=== PATIENT | female | born 1955 | race Caucasian/White ===

== ENCOUNTER 2018-04-30 08:32 | Observation (INO) ==
[2018-04-30] MEDS ORDERED: Azithromycin 500 MG in D5% in Water 250 ML IVPB ONE (08:39)
[2018-04-30] MEDS ORDERED: 0.9 % Sodium Chloride 1,000 ML IVC SCH ×2 (08:45→13:12)
[2018-04-30 08:59] LABS: Bilirubin,Urine Negative (Negative); Blood,Urine Small (Negative); Clarity,Urine Cloudy (Clear); Color,Urine Yellow (Yellow); Glucose,Urine (UA) Normal (Normal); Ketones,Urine Negative (Negative); Leukocyte Esterase,Urine Large (Negative); Nitrite,Urine Negative (Negative); PH,Urine >=9.0 pH Units (5.0-8.0); Protein,Urine >=300 mg/dL (Neg-Trace); Urobilinogen,Urine Normal (Normal)
[2018-04-30] MEDS ORDERED: methylPREDNISolone 125 MG/2 ML VIAL IVP ONE (09:02)
[2018-04-30] MEDS ORDERED: Ipratropium/Albuterol Neb 3 ML IH ONE (09:02)
--- NOTE | 2018-04-30 09:05 | Emergency Department Note ---
Disposition Clinical Impression: CHF exacerbation, Community acquired pneumonia, Hypoxia, Urinary tract infection Disposition: Admitted As Inpatient Condition: Fair Referrals: Rajeev Judge MD [Primary Care Provider] - Forms: ED Satisfaction Letter Time of Disposition: 11:22 ([facility]) SOB HPI - General Chief Complaint: UC Shortness of Breath Stated Complaint: shortness of breath, pelvic pain Time Seen by Provider: 04/30/18 08:40 Source: patient, EMS, other (Nursing care facility called report) Mode of arrival: EMS Limitations: physical limitation Nursing Notes Reviewed: Yes Vital Signs Reviewed: Yes - History of Present Illness 63-year-old female presents to the emergency room with increased breath cough and congestion and hypoxia sent in by the nursing care facility. Patient denies though any blurred vision double vision loss vision states that she is unable to catch her breath she denies apnea or cyanosis but feels that she smothering she has had fevers and chills she has had no diarrhea she has had some swelling to the lower extremities she denies any rash or lesions patient is a moderate historian currently on 100% nonrebreather normally on BiPAP. EMS notes that the BiPAP did not appear to be working at the nursing care facility. With further review systems though the patient denies any additional complaints with complete entire review systems Pt Subjective Complaint: shortness of breath, cough Onset (ago): day(s) Context: recent illness Severity: moderate Consistency/Duration: constant, gradually worsening Improves with: oxygen Worsens with: exertion, movement, coughing Known history of: congestive heart failure, diabetes, recurrent pneumonia Associated symptoms: Reports: fever, cough, wheezing, sputum production. Denies: chest pain, pain with inspiration, orthopnea, lower extremity pain, polyuria, polydipsia, parasthesias, palpitations, hemoptysis, diaphoresis, nausea/vomiting, syncope, abdominal pain, rash, sense of impending doom Treatment prior to arrival: oxygen (100% nonrebreather) Cough present: Yes Cough Description: Involuntary, Productive, Bronchospastic, Rattling Cough Frequency: Intermittent Sputum production: Yes Sputum Amount: Moderate Sputum Color: Cream - Related Data Home Medications Medication Instructions Recorded Confirmed Diltiazem HCl [Diltiazem 24Hr Cd] 180 mg PO DAILY 10/18/14 04/30/18 Albuterol Sulfate [Ventolin Hfa] 2 puff IH Q4H PRN 10/14/15 04/30/18 Lactulose 20 gm PO DAILY PRN 10/14/15 04/30/18 Loratadine [Claritin] 10 mg PO DAILY 10/14/15 04/30/18 Ranitidine HCl [Heartburn Relief] 150 mg PO DAILY 10/14/15 04/30/18 Rivaroxaban [Xarelto] 20 mg PO DAILY 02/08/16 04/30/18 Acetaminophen [Extra Strength 500 mg PO Q6H 04/30/18 04/30/18 Non-Aspirin] Baclofen [Lioresal] 10 mg PO BID 04/30/18 04/30/18 Ciprofloxacin HCl [Cipro] 250 mg PO DAILY 04/30/18 04/30/18 Dulaglutide [Trulicity] 1.5 mg SQ QWEEK 04/30/18 04/30/18 Fluorometholone [Fml Forte] 1 drop OP DAILY 04/30/18 04/30/18 Furosemide [Lasix] 60 mg PO BIDDIURETIC 04/30/18 04/30/18 Glimepiride [Amaryl] 4 mg PO BID 04/30/18 04/30/18 Insulin ASPART [Novolog Flexpen] 0 unit SQ ACHS 04/30/18 04/30/18 Insulin ASPART [Novolog Flexpen] 34 unit SQ TIDWM 04/30/18 04/30/18 Insulin Degludec [Tresiba 37 unit SQ HS 04/30/18 04/30/18 Flextouch U-100] Lactobacillus Acidophilus 2 each PO DAILY 04/30/18 04/30/18 [Acidophilus] Levalbuterol Tartrate [Xopenex Hfa] 2 puff IH Q6H 04/30/18 04/30/18 Montelukast [Singulair] 10 mg PO HS 04/30/18 04/30/18 Oxybutynin Chloride [Ditropan Xl] 5 mg PO QID 04/30/18 04/30/18 Polyethylene Glycol 3350 [MiraLAX] 17 gm PO DAILY PRN 04/30/18 04/30/18 Polyvinyl Alcohol/Povidone 1 drop OP DAILY PRN 04/30/18 04/30/18 [Artificial Tears Drops] Tolnaftate [Antifungal Cream] 14.18 gm TP Q8H 04/30/18 04/30/18 Tramadol HCl [Ultram] 50 mg PO Q4H PRN 04/30/18 04/30/18 Previous Rx's Medication Instructions Recorded Allopurinol [Zyloprim 300 MG] 300 mg PO DAILY tablet 07/04/15 Docusate [Colace] 200 mg PO BID capsule 07/04/15 FentaNYL PATCH [Duragesic] 25 mcg TD Q72H #3 patch.td72 10/18/15 Gabapentin [Neurontin] 200 mg PO TID #15 capsule 04/16/17 Lisinopril [Zestril] 2.5 mg PO DAILY tablet 04/16/17 Allergies Allergy/AdvReac Type Severity Reaction Status Date / Time INDOCET AdvReac Hives Uncoded 08/17/16 00:41 All systems ED: reviewed and negative except as stated. Review of Systems: As Per HPI Constitutional: Reports: fever, chills, weakness Eyes: Denies: eye pain, eye discharge ENT ED: Reports: congestion Cardiovascular: Reports: palpitations, dyspnea on exertion. Denies: chest pain Respiratory: Reports: cough, dyspnea, wheezes Gastrointestinal: Denies: abdominal pain, nausea, vomiting Genitourinary: Reports: urgency (Despite having a Anders) Musculoskeletal: Denies: back pain, neck pain, joint swelling Integumentary: Denies: rash, abrasion Neurological: Denies: headache, weakness Psychiatric: Denies: anxiety, depression Endocrine: Denies: fatigue Hematological/Lymphatic: Denies: easy bleeding Allergic/Immunologic: Denies: facial swelling Past Medical History - Past Medical History Attestation: Yes The following information was validated with the patient. Source: patient, old records reviewed, nursing notes reviewed Medical history: Reports: atrial fibrillation, diabetes, GERD, hypertension, pulmonary embolus, renal disease, other Surgical history: Reports: hysterectomy, knee replacement Psychiatric history: Reports: anxiety, depression - Social History Smoking Status: Never smoker Smokeless Tobacco Status: No Alcohol use: Reports: none Drug use: Reports: none Physical Exam - General Limitations: physical limitation General appearance: alert, in no apparent distress, anxious, obese - Head Head exam: atraumatic, normocephalic, normal inspection - Eye Eye exam: Present: normal appearance, PERRL, EOMI - ENT ENT exam: normal exam, normal oropharynx, mucous membranes moist, TM's normal bilaterally, normal external ear exam - Neck Neck exam: Present: normal inspection, full ROM, trachea midline - Chest Chest inspection: Present: normal inspection, symmetric chest wall rise - Respiratory Respiratory exam: Present: accessory muscle use, prolonged expiratory phase, o ther (Rhonchi wheezing rattling wet moist cough) - Cardiovascular Cardiovascular exam: Present: regular rate, normal rhythm, normal heart sounds - Abdominal Exam Abdominal exam: Present: soft, Non-Tender, normal bowel sounds. Absent: mass, pulsatile mass - Expanded Upper Extremity Exam Shoulder exam: Present: normal inspection, full ROM Arm exam: Present: normal inspection, full ROM Elbow exam: Present: normal inspection, full ROM Forearm/Wrist exam: Present: normal inspection, full ROM Hand exam: Present: normal inspection, full ROM Vascular exam: Normal: capillary refill, radial pulse - Expanded Lower Extremity Exam Hip/Pelvis exam: Present: normal inspection, full ROM Upper leg exam: Present: normal inspection, full ROM Knee exam: Present: normal inspection, full ROM Lower leg exam: Present: normal inspection, full ROM, swelling, erythema Ankle exam: Present: normal inspection, full ROM, swelling, erythema Foot/toe exam: Present: normal inspection, full ROM, swelling, erythema Neurovascular/Tendon exam: Present: normal capillary refill, normal fine/light touch. Absent: motor deficit, sensory deficit, tendon deficit Gait: not tested/not observed - Back Exam Back exam: Present: normal inspection, full ROM. Absent: muscle spasm - Neurological Exam Neurological exam: Present: alert, oriented X3, CN II-XII intact - Psychiatric Psychiatric exam: Present: anxious (Due to the fact she feels like she was sm othering but once calmed down appeared to be normal affect normal mood) - Skin Skin exam: Present: warm, dry, intact, normal color Course Course Narrative: Patient was immediately seen and evaluated septic workup was done on the patient to make sure that she did not have an underlying sepsis chest x-ray reviewed shows pneumonia bilateral with some mild evidence of what could be consistent with congestive heart failure also was given diuretics and antibiotics patient was admitted observation to [facility] on BiPAP improved with sats holding at 98% heart rate in the 60s respiratory rate 16 Vital Signs Temperature 99.3 F 04/30/18 08:37 Pulse Rate 107 04/30/18 08:37 Respiratory Rate 22 02/20/19 08:37 Blood Pressure 171/86 04/30/18 08:37 O2 Sat by Pulse Oximetry 100 04/30/18 08:37 Temperature 100.8 F H 04/30/18 09:21 Pulse Rate 102 04/30/18 10:25 Respiratory Rate 12 04/30/18 10:25 Blood Pressure 127/65 04/30/18 10:25 O2 Sat by Pulse Oximetry 98 04/30/18 10:25 Oxygen Delivery Oxygen Delivery Bipap Shortness of Breath/Dyspnea - Differential Diagnosis Likely: acute exacerbation of chronic obstructive airways disease, congestive heart failure, pneumonia - Medical Records Medical records reviewed: Yes I reviewed the patient's medical records. - Lab Data Lab results reviewed: Yes I reviewed the patient's lab results. Result diagrams: 04/30/18 09:49 04/30/18 09:49 Lab Results 04/30/18 04/30/18 04/30/18 Range/Units 08:53 09:00 09:49 WBC 11.7 H (4.3-11.1) K/mcL RBC 4.09 (3.82-4.97) M/mcL Hgb 12.2 (11.5-15.4) g/dL Hct 41.1 (35.3-44.9) % MCV 100.5 H (83.0-100.0) fL MCH 29.8 (28.0-33.3) pg MCHC 29.7 L (31.6-35.5) g/dL RDW 16.2 H (11.5-14.5) % Plt Count 205 (140-400) K/mcL MPV 11.9 (9.4-12.4) fL Immature Gran % 1.0 (0-4) % Seg Neutrophils % 65.8 % Lymphocytes % 23.6 % Monocytes % 8.1 % Eosinophils % 0.7 % Basophils % 0.8 % Neutrophils # 7.7 (1.6-8.9) K/mcL Lymphocytes # 2.8 (0.6-4.6) K/mcL Monocytes # 1.0 (0.0-1.3) K/mcL Eosinophils # 0.1 (0.0-0.6) K/mcL Basophils # 0.1 (0.0-0.2) K/mcL Nucleated RBCs/100 WBC 0.4 H (0) /100 WBC PT (9.4-12.1) Seconds INR APTT (26.0-36.0) Seconds Sodium (136-145) mEq/L Potassium (3.5-5.1) mEq/L Chloride (98-107) mEq/L Carbon Dioxide (23-29) mEq/L BUN (8-23) mg/dL Creatinine (0.60-1.20) mg/dL Est GFR ( Amer) (> 60) Est GFR (Non-Af Amer) (> 60) BUN/Creatinine Ratio (6-26) Glucose (70-105) mg/dL Calculated Osmolality (280-300) Lactic Acid 0.6 (0.5-2.2) mmol/L Calcium (8.6-10.3) mg/dL Total Bilirubin (0.3-1.0) mg/dL AST (13-39) Units/L ALT (7-52) Units/L Alkaline Phosphatase (34-104) Units/L Troponin I (< 0.04) ng/mL B-Natriuretic Peptide (Less than 100) pg/mL Serum Total Protein (6.4-8.9) g/dL Albumin (3.5-5.7) g/dL Globulin (2.4-3.5) g/dL Albumin/Globulin Ratio (1.1-2.2) Urine Color Yellow (Yellow) Urine Clarity Cloudy A (Clear) Urine pH >=9.0 H (5.0-8.0) pH Units Ur Specific [place] 1.010 (1.010-1.025) Urine Protein >=300 H (Neg-Trace) mg/dL Urine Glucose (UA) Normal (Normal) mg/dL Urine Ketones Negative (Negative) mg/dL Urine Blood Small H (Negative) Urine Nitrite Negative (Negative) Urine Bilirubin Negative (Negative) Urine Urobilinogen Normal (Normal) mg/dL Ur Leukocyte Esterase Large H (Negative) Urine Microscopic RBC 3-5 H (0-3) per hpf Urine Microscopic WBC 15-30 H (0-3) per hpf Ur Squamous Epith Cells Few (None-Few) per lpf Triple Phos Crystals Present Urine Bacteria Many H (None-Few) per hpf Urine Mucus Many H (Few) Ur Culture Indicated? YES A (NO) 02/04/30/18 04/30/18 Range/Units 09:49 09:49 09:49 WBC (4.3-11.1) K/mcL RBC (3.82-4.97) M/mcL Hgb (11.5-15.4) g/dL Hct (35.3-44.9) % MCV (83.0-100.0) fL MCH (28.0-33.3) pg MCHC (31.6-35.5) g/dL RDW (11.5-14.5) % Plt Count (140-400) K/mcL MPV (9.4-12.4) fL Immature Gran % (0-4) % Seg Neutrophils % % Lymphocytes % % Monocytes % % Eosinophils % % Basophils % % Neutrophils # (1.6-8.9) K/mcL Lymphocytes # (0.6-4.6) K/mcL Monocytes # (0.0-1.3) K/mcL Eosinophils # (0.0-0.6) K/mcL Basophils # (0.0-0.2) K/mcL Nucleated RBCs/100 WBC (0) /100 WBC PT 16.1 H (9.4-12.1) Seconds INR 1.4 APTT 29.9 (26.0-36.0) Seconds Sodium 135 L (136-145) mEq/L Potassium 5.1 (3.5-5.1) mEq/L Chloride 94 L (98-107) mEq/L Carbon Dioxide 33 H (23-29) mEq/L BUN 46 H (8-23) mg/dL Creatinine 0.99 (0.60-1.20) mg/dL Est GFR ( Amer) > 60 (> 60) Est GFR (Non-Af Amer) 56 L (> 60) BUN/Creatinine Ratio 46 H (6-26) Glucose 168 H (70-105) mg/dL Calculated Osmolality 296 (280-300) Lactic Acid (0.5-2.2) mmol/L Calcium 8.9 (8.6-10.3) mg/dL Total Bilirubin 0.4 (0.3-1.0) mg/dL AST 22 (13-39) Units/L ALT 24 (7-52) Units/L Alkaline Phosphatase 86 (34-104) Units/L Troponin I 0.03 (< 0.04) ng/mL B-Natriuretic Peptide 101 H (Less than 100) pg/mL Serum Total Protein 6.6 (6.4-8.9) g/dL Albumin 3.2 L (3.5-5.7) g/dL Globulin 3.4 (2.4-3.5) g/dL Albumin/Globulin Ratio 0.9 L (1.1-2.2) Urine Color (Yellow) Urine Clarity (Clear) Urine pH (5.0-8.0) pH Units Ur Specific [place] (1.010-1.025) Urine Protein (Neg-Trace) mg/dL Urine Glucose (UA) (Normal) mg/dL Urine Ketones (Negative) mg/dL Urine Blood (Negative) Urine Nitrite (Negative) Urine Bilirubin (Negative) Urine Urobilinogen (Normal) mg/dL Ur Leukocyte Esterase (Negative) Urine Microscopic RBC (0-3) per hpf Urine Microscopic WBC (0-3) per hpf Ur Squamous Epith Cells (None-Few) per lpf Triple Phos Crystals Urine Bacteria (None-Few) per hpf Urine Mucus (Few) Ur Culture Indicated? (NO) - Radiology Data Radiology results reviewed: Yes I reviewed the patient's radiology results. ITS Impressions Chest X-Ray 04/30/18 08:39 IMPRESSION: Mild pulmonary vascular congestion without overt pulmonary edema. Mild patchy bibasilar opacities which may relate to atelectasis or infiltrates. There may be a small right pleural effusion. Stable cardiomegaly. D/ / 04/30/2018 09:08:13 Jah Cannon MD / [email or web address] Interpreting Provider: Jah Cannon MD - EKG Data EKG attestation: Yes I reviewed and interpreted this EKG. Critical Care Time Critical Care Time: Yes Total Critical Care Time: 15 Attestation: High probability of clinically significant life-threatening deterioration in this patient's condition excluding separately reportable procedures as result of the patient being hypoxic upon arrival responding well to BiPAP when placed on it with the equipment that is in shown to be appropriate with sats improving to 96-98% with the patient tolerating it well
[2018-04-30 09:40] LABS: Bacteria,Urine Many per hpf (None-Few); Squamous Epithelial Cell,Urine Few per lpf (None-Few); Triple Phosphate Crystal,Urine Present; WBC,Urine 15-30 per hpf (0-3)
[2018-04-30 09:41] LABS: Mucus,Urine Many (Few)
[2018-04-30 10:04] LABS: Basophils # 0.1 K/mcL (0.0-0.2); Basophils % 0.8 %; Eosinophils # 0.1 K/mcL (0.0-0.6); Eosinophils % 0.7 %; Hematocrit 41.1 % (35.3-44.9); Hemoglobin 12.2 g/dL (11.5-15.4); Lymphocytes # 2.8 K/mcL (0.6-4.6); Lymphocytes % 23.6 %; Mean Corpuscular HGB Conc 29.7 g/dL (31.6-35.5); Mean Corpuscular Hemoglobin 29.8 pg (28.0-33.3); Mean Corpuscular Volume 100.5 fL (83.0-100.0); Mean Platelet Volume 11.9 fL (9.4-12.4); Monocytes % 8.1 %; Neutrophils # 7.7 K/mcL (1.6-8.9); Nucleated Red Blood Cells 0.4 /100 WBC (0); Platelet Count 205 K/mcL (140-400); Red Blood Count 4.09 M/mcL (3.82-4.97); Red Cell Distribution Width 16.2 % (11.5-14.5); Segmented Neutrophils % 65.8 %
[2018-04-30 10:15] LABS: INR 1.4; Prothrombin Time 16.1 Seconds (9.4-12.1)
[2018-04-30 10:17] LABS: Activated Partial Thrombo Time 29.9 Seconds (26.0-36.0)
[2018-04-30 10:23] LABS: Troponin I 0.03 ng/mL (< 0.04)
[2018-04-30 10:29] LABS: Alanine Aminotransferase 24 Units/L (7-52); Albumin 3.2 g/dL (3.5-5.7); Albumin/Globulin Ratio 0.9 (1.1-2.2); Alkaline Phosphatase 86 Units/L (34-104); Aspartate Amino Transferase 22 Units/L (13-39); BUN/Creatinine Ratio 46 (6-26); Bilirubin,Total 0.4 mg/dL (0.3-1.0); Blood Urea Nitrogen 46 mg/dL (8-23); Calcium 8.9 mg/dL (8.6-10.3); Carbon Dioxide 33 mEq/L (23-29); Chloride 94 mEq/L (98-107); Globulin 3.4 g/dL (2.4-3.5); Glucose 168 mg/dL (70-105); Osmolality,Calculated 296 (280-300); Potassium 5.1 mEq/L (3.5-5.1); Sodium 135 mEq/L (136-145); Total Protein 6.6 g/dL (6.4-8.9); eGFR For Non-African Americans 56 (> 60)
[2018-04-30] MEDS ORDERED: Bumetanide 1 MG/4 ML VIAL IVP ONE (10:38)
[2018-04-30] MEDS ORDERED: Dextrose 4 GM Chewable Tablets PO PRN ×2 (13:12)
[2018-04-30] MEDS ORDERED: D5% in Water 1,000 ML IVC PRN (13:12)
[2018-04-30] MEDS ORDERED: Ondansetron 4 MG/2 ML VIAL IVP PRN (13:12)
[2018-04-30] MEDS ORDERED: *HR* Dextrose 50 % in Water (Syg) 50 ML SYRINGE IVP PRN (13:12)
[2018-04-30] MEDS ORDERED: *HR* FentaNYL PATCH 25 MCG PATCH TD SCH (13:12)
[2018-04-30] MEDS ORDERED: Acetaminophen 325 MG TABLET PO PRN (13:12)
[2018-04-30] MEDS ORDERED: Artificial Tears SOLN 15 ML BOTTLE OP PRN (13:12)
[2018-04-30] MEDS ORDERED: Dextrose Gel 15 GM/37.5 ML TUBE PO PRN ×2 (13:12)
[2018-04-30] MEDS ORDERED: Naloxone 0.4 MG/ML INJ IVP PRN (13:12)
[2018-04-30] MEDS: Gabapentin 100 MG CAPSULE PO SCH ×2 (15:02→20:02)
[2018-04-30] MEDS: Insulin LISPRO 300 UNITS/3 ML VIAL SQ SCH ×2 (15:04→17:55)
[2018-04-30] MEDS: TOLNAFTATE TP SCH ×2 (15:04→20:03)
[2018-04-30] MEDS: Bumetanide 1 MG/4 ML VIAL IVP SCH (15:16)
[2018-04-30] MEDS ORDERED: Levalbuterol 1 PUFF INHALER IH SCH (16:00)
[2018-04-30] MEDS ORDERED: Insulin LISPRO 300 UNITS/3 ML VIAL SQ SCH ×2 (17:00→21:00)
--- NOTE | 2018-04-30 17:06 | Internal Med History&Physical ---
Date of Encounter: 04/30/18 Time of Encounter: 16:35 Assessment and Plan (1) Pneumonia Current visit: Yes Status: Acute She was started on Rocephin and Zithromax with Solu-Medrol in emergency room. Qualifiers: Pneumonia type: due to unspecified organism Laterality: bilateral Lung location: lower lobe of lung Qualified Code(s): J18.1 - Lobar pneumonia, unspecified organism (2) Macrocytosis Current visit: Yes Status: Acute Intermittent since September 2015. Check B12, folate, and TSH in a.m. LFTs were unremarkable. (3) Azotemia Current visit: Yes Status: Acute Recheck labs in a.m. (4) Obesity hypoventilation syndrome Current visit: No Status: Acute Continue BiPAP at bedtime and when necessary during daytime. (5) Low vitamin D level Current visit: Yes Status: Acute Vitamin D level was 6 on 10/16/2015. Recheck in a.m. (6) Gout Current visit: Yes Status: Acute Check uric acid level in a.m. Qualifiers: Gout site: unspecified site Gout etiology: unspecified cause Chronicity: chronic Presence of tophus: without tophus Qualified Code(s): [id number].[id number] - Chronic gout, unspecified, without tophus (tophi) Internal Medicine - H&P: HPI Chief complaint: Dyspnea and hypoxemia Admitted From: Emergency Dept Plans for Post Hospital Care: Home History of present illness: Ms. Luis is a 63 year old female who came to emergency room from a local SNF after staff noted her to have increased dyspnea with congestion and hypoxemia. EMS evaluated her BiPAP machine and did not feel that it was functioning properly. She was brought to emergency room and evaluated and was felt to have possible pneumonia. [facility]. Her respiratory history is significant for being a lifelong nonsmoker. She was placed on BiPAP for acute on chronic respiratory failure with hypoxemia and hypercapnia April 2017 at time of discharge from [facility]. She states she uses BiPAP at nighttime and as needed during the daytime when taking a nap. Past Med Surg Social Fam HX - Past Medical History Medical history: atrial fibrillation, diabetes, GERD, hypertension, pulmonary embolus, renal disease, other Additional medical history: chronic respr failure. hypoxemia. cellulitis left lower limb. histroy of pe Psychiatric history: anxiety, depression - Past Surgical History Surgical History: hysterectomy, knee replacement Additional surgical history: thyroid cyst removed. left knee [id number] - Social History Smoking Status: Never smoker Smokeless Tobacco Status: No Alcohol use: none Drug use: none - Family History Father Hx Family Cardiac Disorders: Yes (ND) Hx Family Respiratory Disorders: Yes (Emphysema) Hx Family Cancer: No Hx Family GI Disorders: No Hx Family Endocrine Disorder: No Hx Family Neuromuscular Disorders: No Hx Family Neurologic Disorders: No Hx Family HEENT Disorders: No Hx Family Autoimmune Disorders: No Mother Family Member Ethnicity: Non- Living Status: Hx Family Cardiac Disorders: No Hx Family Respiratory Disorders: Yes (Lung cancer) Hx Family Cancer: Yes (Small cell carcinoma) Hx Family GI Disorders: No Hx Family Endocrine Disorder: No Hx Family Neuromuscular Disorders: No Hx Family Neurologic Disorders: No Hx Family HEENT Disorders: No Hx Family Autoimmune Disorders: No Internal Medicine - H&P: Meds Diltiazem HCl [Diltiazem 24Hr Cd] 180 mg PO DAILY 10/18/14 [History] Allopurinol [Zyloprim 300 MG] 300 mg PO DAILY tablet 07/04/15 [Rx] Docusate [Colace] 200 mg PO BID capsule 07/04/15 [Rx] Albuterol Sulfate [Ventolin Hfa] 2 puff IH Q4H PRN 10/14/15 [History] Lactulose 20 gm PO DAILY PRN 10/14/15 [History] Loratadine [Claritin] 10 mg PO DAILY 10/14/15 [History] Ranitidine HCl [Heartburn Relief] 150 mg PO DAILY 10/14/15 [History] FentaNYL PATCH [Duragesic] 25 mcg TD Q72H #3 patch.td72 10/18/15 [Rx] Rivaroxaban [Xarelto] 20 mg PO DAILY 02/08/16 [History] Gabapentin [Neurontin] 200 mg PO TID #15 capsule 04/16/17 [Rx] Lisinopril [Zestril] 2.5 mg PO DAILY tablet 04/16/17 [Rx] Acetaminophen [Extra Strength Non-Aspirin] 500 mg PO Q6H 04/30/18 [History] Baclofen [Lioresal] 10 mg PO BID 04/30/18 [History] Ciprofloxacin HCl [Cipro] 250 mg PO DAILY 04/30/18 [History] Dulaglutide [Trulicity] 1.5 mg SQ QWEEK 04/30/18 [History] Fluorometholone [Fml Forte] 1 drop OP DAILY 04/30/18 [History] Furosemide [Lasix] 60 mg PO BIDDIURETIC 04/30/18 [History] Glimepiride [Amaryl] 4 mg PO BID 04/30/18 [History] Insulin ASPART [Novolog Flexpen] 0 unit SQ ACHS 04/30/18 [History] Insulin ASPART [Novolog Flexpen] 34 unit SQ TIDWM 04/30/18 [History] Insulin Degludec [Tresiba Flextouch U-100] 37 unit SQ HS 04/30/18 [History] Lactobacillus Acidophilus [Acidophilus] 2 each PO DAILY 04/30/18 [History] Levalbuterol Tartrate [Xopenex Hfa] 2 puff IH Q6H 04/30/18 [History] Montelukast [Singulair] 10 mg PO HS 04/30/18 [History] Oxybutynin Chloride [Ditropan Xl] 5 mg PO QID 04/30/18 [History] Polyethylene Glycol 3350 [MiraLAX] 17 gm PO DAILY PRN 04/30/18 [History] Polyvinyl Alcohol/Povidone [Artificial Tears Drops] 1 drop OP DAILY PRN 04/30/18 [History] Tolnaftate [Antifungal Cream] 14.18 gm TP Q8H 04/30/18 [History] Tramadol HCl [Ultram] 50 mg PO Q4H PRN 04/30/18 [History] Allergy/AdvReac Type Severity Reaction Status Date / Time INDOCET AdvReac Hives Uncoded 08/17/16 00:41 All Systems PM: A 10-system review of systems was performed and is negative for pertinent findings except as documented above in the HPI. Review of systems: Gen.: Her weight is slightly decreased from 209.6 kg on 04/10/2017 to present weight of 195.952 kilograms. Cardiovascular: She has history of hypertension. She reports pulmonary embolism 2012 and has been maintained on OAC since then. She initially used Coumadin but is now on Xarelto. She denies ND.. Old chart reports a history of atrial fibrillation. Respiratory: As per history of present illness GI: She denies disorders of her liver gallbladder or exocrine pancreas : She has history of "bladder spasms" and is on oxybutynin. She denies other kidney or bladder disorders. Neurologic: She denies large distribution strokes or seizures. Endocrine: She was diagnosed with DM 2 approximately 20 years ago. She reports hypothyroidism but is not on replacement levothyroxine. She denies significant hyperlipidemia Hematology/oncology: She denies blood disorders cancers or anemia Psychiatric: She denies anxiety depression or other mental health issues [place] skeletal: She has DJD and gout but denies other bone joint or muscle disorders. - Constitutional Vitals: Temp Pulse Resp BP Pulse Ox 98.7 F 101 18 165/83 100 04/30/18 15:47 04/30/18 15:47 04/30/18 15:47 04/30/18 15:47 04/30/18 15:47 Exam: Gen.: She is a well-developed morbidly obese female lying in bed who denies unusual pain or dyspnea at present time HEENT: Head is atraumatic and normocephalic. She has significant generalized hair loss. Eyes: EOMI. There is no scleral icterus. Mouth: Mucosa is moist. Neck: She has a large jowl. There are no palpable masses. Heart: Regular with occasional ectopic beat. Lungs: No wheezes or crackles are heard. Abdomen: She has a massive pannus that extends below her knees while lying in bed. There were no masses, tenderness or guarding noted Extremities: She has chronic venous stasis pigmentation changes with skin tags and nodularity of the dermis and epidermis more on the left than the right. There is venous stasis erythema changes more on the left than the right. Dorsalis pedis and posterior tibial pulses are nonpalpable. There is trace to 1+ edema of the dorsum the feet and lower legs bilaterally. Neurologic: Mental status: She is talkative and a good historian. Cranial nerves: Smile is symmetric. Forehead wrinkles bilaterally. Tongue protrudes midline. EOMI. Motor: There is no pronator drift. Cerebellar: Finger to nose is intact bilaterally. Skin: Warm and dry Internal Med - H&P Results - Labs CBC & Chem 7: 04/30/18 09:49 04/30/18 09:49 Labs: Short CBC 04/30/18 Range/Units 09:49 WBC 11.7 H (4.3-11.1) K/mcL Hgb 12.2 (11.5-15.4) g/dL Hct 41.1 (35.3-44.9) % Plt Count 205 (140-400) K/mcL Neutrophils # 7.7 (1.6-8.9) K/mcL BMP 04/30/18 09:49 Sodium 135 L Potassium 5.1 Chloride 94 L Carbon Dioxide 33 H BUN 46 H Creatinine 0.99 Glucose 168 H Calcium 8.9 Cardiac Enzymes 04/30/18 04/30/18 Range/Units 09:49 15:52 Troponin I 0.03 0.04 H* (< 0.04) ng/mL Liver Function 04/30/18 Range/Units 09:49 Total Bilirubin 0.4 (0.3-1.0) mg/dL AST 22 (13-39) Units/L ALT 24 (7-52) Units/L Alkaline Phosphatase 86 (34-104) Units/L Albumin 3.2 L (3.5-5.7) g/dL Urine 04/30/18 Range/Units 08:53 Urine Color Yellow (Yellow) Urine Clarity Cloudy A (Clear) Urine pH >=9.0 H (5.0-8.0) pH Units Ur Specific [place] 1.010 (1.010-1.025) Urine Protein >=300 H (Neg-Trace) mg/dL Urine Glucose (UA) Normal (Normal) mg/dL - Impressions ITS Impressions Chest X-Ray 04/30/18 08:39 IMPRESSION: Mild pulmonary vascular congestion without overt pulmonary edema. Mild patchy bibasilar opacities which may relate to atelectasis or infiltrates. There may be a small right pleural effusion. Stable cardiomegaly. D/ / 04/30/2018 09:08:13 [facility] MD / [facility] Interpreting Provider: Jah Cannon MD
[2018-04-30] MEDS: Furosemide 40 MG TABLET PO SCH (17:59)
[2018-04-30] MEDS: traMADol 50 MG TABLET PO PRN (18:00)
[2018-04-30] MEDS: *HR* Glimepiride 2 MG TABLET PO SCH (20:02)
[2018-04-30] MEDS: Baclofen 10 MG TABLET PO SCH (20:02)
[2018-04-30] MEDS ORDERED: INSULIN DEGLUDEC SQ SCH (21:00)
[2018-05-01 06:05] LABS: Basophils % 0.5 %; Hematocrit 35.4 % (35.3-44.9); Hemoglobin 10.8 g/dL (11.5-15.4); Immature Granulocytes % 1.7 % (0-4); Lymphocytes # 1.4 K/mcL (0.6-4.6); Lymphocytes % 20.7 %; Mean Corpuscular HGB Conc 30.5 g/dL (31.6-35.5); Mean Corpuscular Volume 98.3 fL (83.0-100.0); Mean Platelet Volume 12.4 fL (9.4-12.4); Monocytes # 0.4 K/mcL (0.0-1.3); Monocytes % 6.7 %; Neutrophils # 4.6 K/mcL (1.6-8.9); Nucleated Red Blood Cells 0.5 /100 WBC (0); Platelet Count 232 K/mcL (140-400); Red Cell Distribution Width 16.1 % (11.5-14.5); Segmented Neutrophils % 70.4 %
[2018-05-01] MEDS: TOLNAFTATE TP SCH (06:19)
[2018-05-01 06:26] LABS: Uric Acid 5.9 mg/dL (2.3-7.6)
[2018-05-01 06:38] LABS: Thyroid Stimulating Hormone 0.748 mcIU/mL (0.340-5.600)
[2018-05-01 07:03] LABS: BUN/Creatinine Ratio 49 (6-26); Blood Urea Nitrogen 42 mg/dL (8-23); Calcium 8.9 mg/dL (8.6-10.3); Carbon Dioxide 41 mEq/L (23-29); Chloride 94 mEq/L (98-107); Glucose 321 mg/dL (70-105); Osmolality,Calculated 311 (280-300); Potassium 4.1 mEq/L (3.5-5.1); Sodium 139 mEq/L (136-145); eGFR For Non-African Americans > 60 (> 60)
[2018-05-01 07:51] VITALS: BP 161/62
[2018-05-01] MEDS ORDERED: Diltiazem CD (24hr) 180 MG CAPSULE PO SCH (09:00)
[2018-05-01] MEDS ORDERED: Loratadine 10 MG TABLET PO SCH (09:00)
[2018-05-01] MEDS ORDERED: Famotidine 20 MG TABLET PO SCH (09:00)
[2018-05-01] MEDS ORDERED: *HR* Rivaroxaban 15 MG TABLET PO SCH (09:00)
[2018-05-01] MEDS ORDERED: FLUOROMETHOLONE OP SCH (09:00)
[2018-05-01] MEDS ORDERED: Lactobacillus 1 EACH CAP.SPRINK PO SCH (09:00)
[2018-05-01] MEDS ORDERED: Azithromycin 500 MG in D5% in Water 250 ML IVPB SCH (09:00)
[2018-05-01] MEDS ORDERED: cefTRIAXone 1,000 MG in Water for inj. (sterile) 20 ML 10 ML IVP SCH (09:00)
[2018-05-01] MEDS: Bumetanide 1 MG/4 ML VIAL IVP SCH (09:13)
[2018-05-01] MEDS: Furosemide 40 MG TABLET PO SCH (09:15)
[2018-05-01] MEDS: *HR* Glimepiride 2 MG TABLET PO SCH (09:16)
[2018-05-01] MEDS: Gabapentin 100 MG CAPSULE PO SCH (09:16)
[2018-05-01] MEDS: Baclofen 10 MG TABLET PO SCH (09:16)
[2018-05-01] MEDS: Insulin LISPRO 300 UNITS/3 ML VIAL SQ SCH ×2 (09:42→11:25)
[2018-05-01] MEDS: traMADol 50 MG TABLET PO PRN (11:24)
--- NOTE | 2018-05-01 11:38 | Discharge Summary ---
Orders not resulted at time of discharge: Pending orders 04/30/18 08:53 Culture,Urine [RM] Stat 04/30/18 09:00 Culture,Blood [BC] Stat Date of Encounter: 05/01/18 Time of Encounter: 11:30 - Discharge Diagnosis (1) Pneumonia Priority: Primary Status: Acute Qualifiers: Pneumonia type: due to unspecified organism Laterality: bilateral Lung location: lower lobe of lung Qualified Code(s): J18.1 - Lobar pneumonia, unspecified organism (2) Macrocytosis Priority: Secondary Status: Acute (3) Azotemia Priority: Secondary Status: Acute (4) Obesity hypoventilation syndrome Priority: Secondary Status: Chronic (5) Low vitamin D level Priority: Secondary Status: Chronic (6) Gout Priority: Secondary Status: Chronic Qualifiers: Gout site: unspecified site Gout etiology: unspecified cause Chronicity: chronic Presence of tophus: without tophus Qualified Code(s): M1A.9XX0 - Chronic gout, unspecified, without tophus (tophi) Hospital course: Ms. Luis is a 63 year old female who came to emergency room from a local [facility] after staff noted her to have increased dyspnea with congestion and hypoxemia. EMS evaluated her BiPAP machine and did not feel that it was functioning properly. She was brought to emergency room and evaluated and was felt to have possible pneumonia. She was admitted to [facility] for ongoing care needs. Initial orders were written by the emergency room physician. I saw her on April 30 and performed a history and physical. She was given Rocephin and Zithromax with Solu-Medrol in emergency room. WBC normalized to 6.5 by the following day. She spiked low-grade fevers but felt better overall when I saw her on May 01. I felt she was stable for discharge back to the SNF. She will continue with antibiotic and probiotic for 3 additional days at discharge. Vitamin B12 level returned low at 168. She was given a B12 injection prior to discharge and will continue oral B12 supplementation at the [facility]. Folate and TSH levels were normal at 4.0 and 0.748 respectively. Vitamin D level returned very low at 6. She will start oral vitamin D supplementation. Her PCP can monitor labs. There were no new problems on May 01 she was stable for discharge back to [facility] where she will follow with Dr. Judge. - Time Spent with Patient Total time spent providing and/or coordinating discharge services: - Discharge Medications Prescriptions: New Cefuroxime PO [Ceftin] 500 mg PO Q12HR 3 Days tablet Azithromycin [Zithromax] 250 mg PO DAILY 3 Days tablet Cholecalciferol (D-3) [Vitamin D] 2,000 unit PO DAILY 365 Days tablet Cyanocobalamin (B-12) [Vitamin B12] 1,000 mcg PO DAILY 365 Days tablet Continue Diltiazem HCl [Diltiazem 24Hr Cd] 180 mg PO DAILY Allopurinol [Zyloprim 300 MG] 300 mg PO DAILY tablet Docusate [Colace] 200 mg PO BID capsule Lactulose 20 gm PO DAILY PRN PRN Reason: Constipation Ranitidine HCl [Heartburn Relief] 150 mg PO DAILY Albuterol Sulfate [Ventolin Hfa] 2 puff IH Q4H PRN PRN Reason: Shortness Of Breath FentaNYL PATCH [Duragesic] 25 mcg TD Q72H #3 patch.td72 Lisinopril [Zestril] 2.5 mg PO DAILY tablet Gabapentin [Neurontin] 200 mg PO TID #15 capsule Rivaroxaban [Xarelto] 20 mg PO DAILY Polyethylene Glycol 3350 [MiraLAX] 17 gm PO DAILY PRN PRN Reason: Constipation Tramadol HCl [Ultram] 50 mg PO Q4H PRN PRN Reason: Pain Fluorometholone [Fml Forte] 1 drop OP DAILY Acetaminophen [Extra Strength Non-Aspirin] 500 mg PO Q6H Insulin ASPART [Novolog Flexpen] 0 unit SQ ACHS Polyvinyl Alcohol/Povidone [Artificial Tears Drops] 1 drop OP DAILY PRN PRN Reason: Dry Eyes Levalbuterol Tartrate [Xopenex Hfa] 2 puff IH Q6H Dulaglutide [Trulicity] 1.5 mg SQ QWEEK Insulin Degludec [Tresiba Flextouch U-100] 37 unit SQ HS Oxybutynin Chloride [Ditropan Xl] 5 mg PO QID Ciprofloxacin HCl [Cipro] 250 mg PO DAILY Lactobacillus Acidophilus [Acidophilus] 2 each PO DAILY Insulin ASPART [Novolog Flexpen] 34 unit SQ TIDWM Montelukast [Singulair] 10 mg PO HS Glimepiride [Amaryl] 4 mg PO BID Tolnaftate [Antifungal Cream] 14.18 gm TP Q8H Furosemide [Lasix] 60 mg PO BIDDIURETIC Baclofen [Lioresal] 10 mg PO BID Discontinued Loratadine [Claritin] 10 mg PO DAILY Home Medications: Diltiazem HCl [Diltiazem 24Hr Cd] 180 mg PO DAILY 10/18/14 [History] Allopurinol [Zyloprim 300 MG] 300 mg PO DAILY tablet 07/04/15 [Rx] Docusate [Colace] 200 mg PO BID capsule 07/04/15 [Rx] Albuterol Sulfate [Ventolin Hfa] 2 puff IH Q4H PRN 10/14/15 [History] Lactulose 20 gm PO DAILY PRN 10/14/15 [History] Ranitidine HCl [Heartburn Relief] 150 mg PO DAILY 10/14/15 [History] FentaNYL PATCH [Duragesic] 25 mcg TD Q72H #3 patch.td72 10/18/15 [Rx] Rivaroxaban [Xarelto] 20 mg PO DAILY 02/08/16 [History] Gabapentin [Neurontin] 200 mg PO TID #15 capsule 04/16/17 [Rx] Lisinopril [Zestril] 2.5 mg PO DAILY tablet 04/16/17 [Rx] Acetaminophen [Extra Strength Non-Aspirin] 500 mg PO Q6H 04/30/18 [History] Baclofen [Lioresal] 10 mg PO BID 04/30/18 [History] Ciprofloxacin HCl [Cipro] 250 mg PO DAILY 04/30/18 [History] Dulaglutide [Trulicity] 1.5 mg SQ QWEEK 04/30/18 [History] Fluorometholone [Fml Forte] 1 drop OP DAILY 04/30/18 [History] Furosemide [Lasix] 60 mg PO BIDDIURETIC 04/30/18 [History] Glimepiride [Amaryl] 4 mg PO BID 04/30/18 [History] Insulin ASPART [Novolog Flexpen] 0 unit SQ ACHS 04/30/18 [History] Insulin ASPART [Novolog Flexpen] 34 unit SQ TIDWM 04/30/18 [History] Insulin Degludec [Tresiba Flextouch U-100] 37 unit SQ HS 04/30/18 [History] Lactobacillus Acidophilus [Acidophilus] 2 each PO DAILY 04/30/18 [History] Levalbuterol Tartrate [Xopenex Hfa] 2 puff IH Q6H 04/30/18 [History] Montelukast [Singulair] 10 mg PO HS 04/30/18 [History] Oxybutynin Chloride [Ditropan Xl] 5 mg PO QID 04/30/18 [History] Polyethylene Glycol 3350 [MiraLAX] 17 gm PO DAILY PRN 04/30/18 [History] Polyvinyl Alcohol/Povidone [Artificial Tears Drops] 1 drop OP DAILY PRN 04/30/18 [History] Tolnaftate [Antifungal Cream] 14.18 gm TP Q8H 04/30/18 [History] Tramadol HCl [Ultram] 50 mg PO Q4H PRN 04/30/18 [History] Azithromycin [Zithromax] 250 mg PO DAILY 3 Days tablet 05/01/18 [Rx] Cefuroxime PO [Ceftin] 500 mg PO Q12HR 3 Days tablet 05/01/18 [Rx] Cholecalciferol (D-3) [Vitamin D] 2,000 unit PO DAILY 365 Days tablet 05/01/18 [Rx] Cyanocobalamin (B-12) [Vitamin B12] 1,000 mcg PO DAILY 365 Days tablet 05/01/18 [Rx] Allergies/Adverse Reactions: Allergy/AdvReac Type Severity Reaction Status Date / Time INDOCET AdvReac Hives Uncoded 08/17/16 00:41 Date of admission: 04/30/18 11:29 Primary care physician: Rajeev Judge MD Consults: 04/30/18 13:12 Consult to Cardiac Rehabilitation-Phase1 [CONS] Routine Comment: Reason for Consult: heart failure Call Completed: Yes Consult to Nurse Navigator [CONS] Routine Comment: Consult to Nurse Navigator [CONS] Routine Comment: - Constitutional Vitals: Temp Pulse Resp BP Pulse Ox 98 F 86 12 161/62 94 05/01/18 07:48 05/01/18 07:48 05/01/18 07:48 05/01/18 07:48 05/01/18 07:48 - Patient Status Disposition: Transfer SNF Condition: Fair - Discharge Instructions Follow Up With: Rajeev Judge MD [Primary Care Provider] - 1 week - Diet and Activity Activity: resume usual activities as tolerated, wear oxygen at all times Diet: advance to your usual diet
[2018-05-01] MEDS ORDERED: Cyanocobalamin (B-12) 1,000 MCG/ML VIAL IM ONE (11:39)
--- NOTE | 2018-05-01 11:53 | Physician Discharge Referral ---
ExtendedCare Referral Info Transfer To: [facility] Provider in Charge: Deshaun Provider in Charge after Transfer: PCP (Alfie) - Diagnosis (1) Pneumonia Priority: Primary Status: Acute (2) Macrocytosis Priority: Secondary Status: Acute (3) Azotemia Priority: Secondary Status: Acute (4) Obesity hypoventilation syndrome Priority: Secondary Status: Chronic (5) Low vitamin D level Priority: Secondary Status: Chronic (6) Gout Priority: Secondary Status: Chronic (7) B12 deficiency Priority: Secondary Status: Acute Prognosis: Good Aware of Diagnosis: Patient Aware of Prognosis: Patient - Transfer Medications Prescriptions: Cefuroxime PO [Ceftin] 500 mg PO Q12HR 3 Days tablet Azithromycin [Zithromax] 250 mg PO DAILY 3 Days tablet Cholecalciferol (D-3) [Vitamin D] 2,000 unit PO DAILY 365 Days tablet Cyanocobalamin (B-12) [Vitamin B12] 1,000 mcg PO DAILY 365 Days tablet Home Medications: Diltiazem HCl [Diltiazem 24Hr Cd] 180 mg PO DAILY 10/18/14 [History] Allopurinol [Zyloprim 300 MG] 300 mg PO DAILY tablet 07/04/15 [Rx] Docusate [Colace] 200 mg PO BID capsule 07/04/15 [Rx] Albuterol Sulfate [Ventolin Hfa] 2 puff IH Q4H PRN 10/14/15 [History] Lactulose 20 gm PO DAILY PRN 10/14/15 [History] Ranitidine HCl [Heartburn Relief] 150 mg PO DAILY 10/14/15 [History] FentaNYL PATCH [Duragesic] 25 mcg TD Q72H #3 patch.td72 10/18/15 [Rx] Rivaroxaban [Xarelto] 20 mg PO DAILY 02/08/16 [History] Gabapentin [Neurontin] 200 mg PO TID #15 capsule 04/16/17 [Rx] Lisinopril [Zestril] 2.5 mg PO DAILY tablet 04/16/17 [Rx] Acetaminophen [Extra Strength Non-Aspirin] 500 mg PO Q6H 04/30/18 [History] Baclofen [Lioresal] 10 mg PO BID 04/30/18 [History] Ciprofloxacin HCl [Cipro] 250 mg PO DAILY 04/30/18 [History] Dulaglutide [Trulicity] 1.5 mg SQ QWEEK 04/30/18 [History] Fluorometholone [Fml Forte] 1 drop OP DAILY 04/30/18 [History] Furosemide [Lasix] 60 mg PO BIDDIURETIC 04/30/18 [History] Glimepiride [Amaryl] 4 mg PO BID 04/30/18 [History] Insulin ASPART [Novolog Flexpen] 0 unit SQ ACHS 04/30/18 [History] Insulin ASPART [Novolog Flexpen] 34 unit SQ TIDWM 04/30/18 [History] Insulin Degludec [Tresiba Flextouch U-100] 37 unit SQ HS 04/30/18 [History] Lactobacillus Acidophilus [Acidophilus] 2 each PO DAILY 04/30/18 [History] Levalbuterol Tartrate [Xopenex Hfa] 2 puff IH Q6H 04/30/18 [History] Montelukast [Singulair] 10 mg PO HS 04/30/18 [History] Oxybutynin Chloride [Ditropan Xl] 5 mg PO QID 04/30/18 [History] Polyethylene Glycol 3350 [MiraLAX] 17 gm PO DAILY PRN 04/30/18 [History] Polyvinyl Alcohol/Povidone [Artificial Tears Drops] 1 drop OP DAILY PRN 04/30/18 [History] Tolnaftate [Antifungal Cream] 14.18 gm TP Q8H 04/30/18 [History] Tramadol HCl [Ultram] 50 mg PO Q4H PRN 04/30/18 [History] Azithromycin [Zithromax] 250 mg PO DAILY 3 Days tablet 05/01/18 [Rx] Cefuroxime PO [Ceftin] 500 mg PO Q12HR 3 Days tablet 05/01/18 [Rx] Cholecalciferol (D-3) [Vitamin D] 2,000 unit PO DAILY 365 Days tablet 05/01/18 [Rx] Cyanocobalamin (B-12) [Vitamin B12] 1,000 mcg PO DAILY 365 Days tablet 05/01/18 [Rx] Allergies/Adverse Reactions: Allergy/AdvReac Type Severity Reaction Status Date / Time INDOCET AdvReac Hives Uncoded 08/17/16 00:41 - Respiratory Orders Oxygen / L per min (As previously prescribed) Smoking Cessation: Smoking cessation has been advised. For more information, call the [place] Tobacco Quit Line at 6-584-OLYB-NOW. - Rehabiliation Orders Rehab Potential: Fair - Diet Orders Regular CERTIFICATION: I certify that the transfer of the above named patient to an Extended Care Facility is necessary for the continuing treatment of the diagnosis listed. The above information is true and accurate reflection of patient's current condi tion. Confidential - Redisclosure prohibited without a patient's written consent.
--- NOTE | 2018-05-01 21:11 | Electrocardiograph Report ---
[place] [id number] Test Date: 2018-04-30 Pat Name: Germaine Luis Department: [id number]-[id number] Room: [facility] Gender: F [employer]: : 1955 Requested By: Maggie Morgan Order Number: [id number] Reading MD: Jaye Escalera Measurements Intervals Mora Rate: 101 P: 33 SD: 168 QRS: -7 QRSD: 91 T: 70 QT: 344 QTc: 446 Interpretive Statements Sinus tachycardia Atrial premature complex Consider anterior infarct Minimal ST depression, anterolateral leads Electronically Signed On 05-01-2018 21:09:48 EST by Jaye Escalera
== END 2018-05-01 14:55 ==
LOC: INPPIK 08:32 → EMEROOPIK 08:32 → INPPIK 12:19
PROVIDERS: ADMIT Internal Medicine; ATTEND Internal Medicine

== ENCOUNTER 2018-08-05 09:53 | Inpatient (IN) ==
--- NOTE | 2018-08-05 10:36 | Emergency Department Note ---
Disposition Clinical Impression: Dyspnea, Morbid obesity with BMI of 70 and over, adult, Acute on chronic respiratory failure with hypercapnia, UTI (urinary tract infection) with pyuria, Chronic respiratory failure with hypoxia and hypercapnia, Urinary tract infection Disposition: Admitted As Inpatient Condition: Fair Time of Disposition: 13:30 Altered Mental Status HPI - General Chief Complaint: ED Altered Mental Status Stated Complaint: Patient sent for AMS Time Seen by Provider: 08/05/18 09:55 Source: patient, EMS Mode of arrival: EMS Limitations: altered mental status, physical limitation Nursing Notes Reviewed: Yes Vital Signs Reviewed: Yes - History of Present Illness HPI Narrative: 63-year-old morbidly obese female who presents to the emergency room with the half-way calling and stating that she was being sent in for urinary retention the patient stating that she is being sent in for altered mental status and EMS stating that she is here for fluid retention reviewed with discussion with the patient it appears that she is having some increased lethargy and they had placed a new Anders catheter last night and it was not draining as result she is really not sure what she is truly here for. Patient has chest pain chest pressure palpation cough hemoptysis or sputum production she denies diarrhea melena hematochezia hematemesis she does admit that her Anders catheter was not draining last evening he exchanged and replaced it. this morning the patient states that the catheter has not drained all night and is result they were telling her that she needed to come to the emergency room to be evaluated because the catheter was causing fluid retention patient has any burning urgency stinging. She denies any diarrhea melena hematochezia hematemesis. All systems reviewed and are otherwise negative Patient tells me she was in the half-way for couple occasions due to sciatic nerve and for weight loss but apparently has gained weight well in the nursing care facility patient admits to being fairly well bedridden but staff states that the patient has everybody do everything for her including give her water. that she is unable to give herself a drink complaint: altered mental status, confusion, weakness (Chronic), other (U rinary retention) Onset (ago): hour(s) Pain Severity: moderate Pain Scale: 5 Consistency of Symptoms: waxing and waning Context: COPD, other (Morbid obesity) Associated symptoms: Reports: loss of appetite, malaise, shortness of breath, weakness, difficulty walking. Denies: chest pain, cough, diaphoresis, fever, chills, headaches, nausea/vomiting, rash, seizure, syncope, foul smelling urine, diarrhea (Chronic), incontinence - Related Data Home Medications Medication Instructions Recorded Confirmed Ranitidine HCl [Heartburn Relief] 150 mg PO 2200 10/14/15 08/05/18 Acetaminophen [Extra Strength 500 mg PO Q6H PRN 04/30/18 08/05/18 Non-Aspirin] Baclofen [Lioresal] 10 mg PO 0700,1900 04/30/18 08/05/18 Ciprofloxacin HCl [Cipro] 250 mg PO 0700 04/30/18 08/05/18 Dulaglutide [Trulicity] 1.5 mg SQ TU 04/30/18 08/05/18 Fluorometholone [Fml Forte] 1 drop BOTH EYES DAILY 04/30/18 08/05/18 Glimepiride [Amaryl] 4 mg PO 0700,1900 04/30/18 08/05/18 Insulin ASPART [Novolog Flexpen] 0 unit SQ ACHS 04/30/18 08/05/18 Insulin ASPART [Novolog Flexpen] 34 unit SQ TIDWM 04/30/18 08/05/18 Insulin Degludec [Tresiba 40 unit SQ 04/30/18 08/05/18 Flextouch U-100] Lactobacillus Acidophilus 2 cap PO 0704/30/18 08/05/18 [Acidophilus] Levalbuterol Tartrate [Xopenex Hfa] 2 puff IH 0000,0600,1200,1800 04/30/18 08/05/18 Montelukast [Singulair] 10 mg PO 04/30/18 08/05/18 Oxybutynin Chloride [Ditropan Xl] 5 mg PO 0000,0600,1200,1800 04/30/18 08/05/18 Polyvinyl Alcohol/Povidone 1 drop OP DAILY PRN 04/30/18 08/05/18 [Artificial Tears Drops] Albuterol Sulfate [Ventolin Hfa] 2 puff IH Q4H PRN 05/24/18 08/05/18 Allopurinol [Zyloprim 300 MG] 300 mg PO 0700 05/24/18 08/05/18 Bisacodyl [Gentle Laxative] 10 mg RC DAILY PRN 05/24/18 08/05/18 Cholecalciferol (D-3) [Vitamin D] 2,000 unit PO 0700 05/24/18 08/05/18 Cyanocobalamin (B-12) [Vitamin B12] 1,000 mcg PO 0700 05/24/18 08/05/18 Docusate [Colace] 200 mg PO 0700,1900 05/24/18 08/05/18 Gabapentin [Neurontin] 200 mg PO 0700,1500,2300 05/24/18 08/05/18 Lactulose 20 gm PO DAILY PRN 05/24/18 08/05/18 Lisinopril [Zestril] 2.5 mg PO 0700 05/24/18 08/05/18 Menthol [Biofreeze] 1 appl TP TID PRN 05/24/18 08/05/18 Polyethylene Glycol 3350 [MiraLAX] 17 gm PO DAILY PRN 05/24/18 08/05/18 Rivaroxaban [Xarelto] 20 mg PO 1900 05/24/18 08/05/18 Terbinafine HCl [Antifungal] 1 appl TP BID 05/24/18 08/05/18 Tramadol HCl [Ultram] 50 mg PO QID PRN 05/24/18 08/05/18 dilTIAZem HCl [Diltiazem 24Hr Cd] 180 mg PO 0700 05/24/18 08/05/18 Previous Rx's Medication Instructions Recorded FentaNYL PATCH [Duragesic] 25 mcg TD Q72H #3 patch.td72 10/18/15 Cefdinir [Omnicef] 300 mg PO BID #6 capsule 05/27/18 Furosemide [Lasix] 40 mg PO BID #0 05/27/18 Allergies Allergy/AdvReac Type Severity Reaction Status Date / Time indomethacin AdvReac Hives Verified 05/24/18 13:08 All systems ED: reviewed and negative except as stated. Review of Systems: As Per HPI Constitutional: Reports: weakness. Denies: fever, chills Eyes: Denies: eye pain, eye discharge ENT ED: Denies: ear pain, throat pain Cardiovascular: Denies: chest pain, palpitations Respiratory: Denies: cough, dyspnea Gastrointestinal: Denies: abdominal pain, nausea Genitourinary: Denies: urgency, dysuria Musculoskeletal: Denies: back pain, neck pain Integumentary: Denies: rash, abrasion Neurological: Reports: weakness, confusion. Denies: headache Psychiatric: Denies: anxiety, depression Endocrine: Reports: fatigue. Denies: heat or cold intolerance Hematological/Lymphatic: Denies: easy bleeding Allergic/Immunologic: Denies: facial swelling Past Medical History - Past Medical History Attestation: Yes The following information was validated with the patient. Source: patient, old records reviewed Medical history: Reports: atrial fibrillation, CHF, diabetes, GERD, hypertension, pulmonary embolus, renal disease, other Surgical history: Reports: hysterectomy, knee replacement Psychiatric history: Reports: anxiety, depression CERTIFIED NUTRITIONIST history: Reports: other - Social History Smoking Status: Never smoker Smokeless Tobacco Status: No Alcohol use: Reports: none Drug use: Reports: none Physical Exam - General Limitations: altered mental status (Slow to answer questions has to be awoken), physical limitation (Morbid obesity) General appearance: in no apparent distress, obese, other (At times appears to be melodramatic but easily just off to sleep landing expecting everyone to do everything for her that she is able to move her arms) - Head Head exam: atraumatic, normocephalic, normal inspection - Eye Eye exam: Present: normal appearance, PERRL, EOMI - ENT ENT exam: normal exam, normal oropharynx, mucous membranes moist, TM's normal bilaterally, normal external ear exam - Neck Neck exam: Present: normal inspection, full ROM, trachea midline - Chest Chest inspection: Present: normal inspection, symmetric chest wall rise - Respiratory Respiratory exam: Present: normal lung sounds bilaterally - Cardiovascular Cardiovascular exam: Present: regular rate, normal rhythm, normal heart sounds - Abdominal Exam Abdominal exam: Present: soft, Non-Tender, normal bowel sounds, other (Very large clavicular flap extends down to the levels of the gastrocnemius muscles of the lower legs). Absent: mass, pulsatile mass - Extremities Exam Extremities exam: Present: normal inspection, full ROM, normal capillary refill, other (Very large truncus extremities both upper and lower consistent with her obesity bruising on the left biceps region mild erythema to the lower extremities bilaterally noted range of motion but is present difficult because of body habitus) - Expanded Lower Extremity Exam Neurovascular/Tendon exam: Present: normal capillary refill, normal fine/light touch Gait: not tested/not observed - Back Exam Back exam: Present: normal inspection, full ROM. Absent: muscle spasm - Neurological Exam Neurological exam: Present: oriented X3, CN II-XII intact, other (Arousable) - Psychiatric Psychiatric exam: Present: normal affect, normal mood - Skin Skin exam: Present: warm, dry, intact, normal color Course Course Narrative: 43-year-old female who presents emergency room with history of altered mental status concerns are is whether the patient actually has an underlying infection or whether she CO2 narcosis secondary to pickwickian body habitus or that she has underlying infection etiology of the labs were done EKG chest x-ray urinalysis. Patient does not show evidence of sepsis at this time but does show that she is CO2 retaining she is placed on BiPAP and actually becomes much more alert and demanding of staff urinalysis was obtained from a Anders catheter which shows that she has got a little bit of an underlying UTI which is probably contributing to the alteration the patient's mental status as result admitted for observation IV hydrations BiPAP Vital Signs Temperature 98.7 F 08/05/18 09:55 Pulse Rate 88 08/05/18 09:55 Respiratory Rate 18 08/05/18 09:55 Blood Pressure 132/96 08/05/18 09:55 O2 Sat by Pulse Oximetry 93 08/05/18 09:55 Temperature 98.7 F 08/05/18 09:55 Pulse Rate 71 08/05/18 13:30 Respiratory Rate 16 08/05/18 13:30 Blood Pressure 118/51 08/05/18 13:30 O2 Sat by Pulse Oximetry 100 08/05/18 13:00 Oxygen Delivery Oxygen Delivery Bipap Altered Mental Status - [facility] Narrative Medical decision making narrative: Infection CO2 retention hypercapnia hypoxemia urinary tract infection sepsis - Differential Diagnosis Likely: altered mental status, delirium, dementia, hypoglycemia, hyponatremia - Medical Records Medical records reviewed: Yes I reviewed the patient's medical records. - Lab Data Lab results reviewed: Yes I reviewed the patient's lab results. Result diagrams: 08/05/18 10:53 08/05/18 10:53 Lab Results 08/05/18 08/05/18 08/05/18 Range/Units 10:53 10:53 10:53 WBC 11.0 (4.3-11.1) K/mcL RBC 3.70 L (3.82-4.97) M/mcL Hgb 11.3 L (11.5-15.4) g/dL Hct 36.4 (35.3-44.9) % MCV 98.4 (83.0-100.0) fL MCH 30.5 (28.0-33.3) pg MCHC 31.0 L (31.6-35.5) g/dL RDW 15.6 H (11.5-14.5) % Plt Count 176 (140-400) K/mcL MPV 12.2 (9.4-12.4) fL Immature Gran % 1.5 (0-4) % Seg Neutrophils % 60.9 % Lymphocytes % 28.2 % Monocytes % 7.5 % Eosinophils % 1.4 % Basophils % 0.5 % Neutrophils # 6.7 (1.6-8.9) K/mcL Lymphocytes # 3.1 (0.6-4.6) K/mcL Monocytes # 0.8 (0.0-1.3) K/mcL Eosinophils # 0.2 (0.0-0.6) K/mcL Basophils # 0.1 (0.0-0.2) K/mcL Platelet Estimate Normal (Normal) PT 12.7 H (9.4-12.1) Seconds INR 1.1 APTT 25.4 L (26.0-36.0) Seconds Sample Site ABG pH (7.32-7.45) pH Units ABG pCO2 (35-45) mmHg ABG pO2 (85-104) mmHg ABG HCO3 (21-27) mEq/L ABG Total CO2 (20-26) mEq/L ABG O2 Saturation (95-98) % ABG Base Excess (-2 to 3) mEq/L Yehuda Test O2 Delivery Device Inspired O2 (1-15=lpm [id number]=%) Sodium 131 L (136-145) mEq/L Potassium 4.6 (3.5-5.1) mEq/L Chloride 89 L (98-107) mEq/L Carbon Dioxide 36 H (23-29) mEq/L BUN 63 H (8-23) mg/dL Creatinine 1.57 H (0.60-1.20) mg/dL Est GFR ( Amer) 40 L (> 60) Est GFR (Non-Af Amer) 33 L (> 60) BUN/Creatinine Ratio 40 H (6-26) Glucose 195 H (70-105) mg/dL Calculated Osmolality 295 (280-300) Lactic Acid (0.5-2.2) mmol/L Calcium 8.4 L (8.6-10.3) mg/dL Total Bilirubin 0.3 (0.3-1.0) mg/dL AST 19 (13-39) Units/L ALT 11 (7-52) Units/L Alkaline Phosphatase 75 (34-104) Units/L Troponin I 0.04 H* (< 0.04) ng/mL Serum Total Protein 6.7 (6.4-8.9) g/dL Albumin 3.3 L (3.5-5.7) g/dL Globulin 3.4 (2.4-3.5) g/dL Albumin/Globulin Ratio 1.0 L (1.1-2.2) TSH 2.292 (0.340-5.600) mcIU/mL Urine Color (Yellow) Urine Clarity (Clear) Urine pH (5.0-8.0) pH Units Ur Specific [place]ona (1.010-1.025) Urine Protein (Neg-Trace) mg/dL Urine Glucose (UA) (Normal) mg/dL Urine Ketones (Negative) mg/dL Urine Blood (Negative) Urine Nitrite (Negative) Urine Bilirubin (Negative) Urine Urobilinogen (Normal) mg/dL Ur Leukocyte Esterase (Negative) Urine Microscopic RBC (0-3) per hpf Urine Microscopic WBC (0-3) per hpf Ur Squamous Epith Cells (None-Few) per lpf Amorphous Sediment (Few) Urine Bacteria (None-Few) per hpf Urine Mucus (Few) Ur Culture Indicated? (NO) Person Notif of Crit 08/05/18 08/05/18 08/05/18 Range/Units 10:53 11:26 11:32 WBC (4.3-11.1) K/mcL RBC (3.82-4.97) M/mcL Hgb (11.5-15.4) g/dL Hct (35.3-44.9) % MCV (83.0-100.0) fL MCH (28.0-33.3) pg MCHC (31.6-35.5) g/dL RDW (11.5-14.5) % Plt Count (140-400) K/mcL MPV (9.4-12.4) fL Immature Gran % (0-4) % Seg Neutrophils % % Lymphocytes % % Monocytes % % Eosinophils % % Basophils % % Neutrophils # (1.6-8.9) K/mcL Lymphocytes # (0.6-4.6) K/mcL Monocytes # (0.0-1.3) K/mcL Eosinophils # (0.0-0.6) K/mcL Basophils # (0.0-0.2) K/mcL Platelet Estimate (Normal) PT (9.4-12.1) Seconds INR APTT (26.0-36.0) Seconds Sample Site R Brach ABG pH 7.25 L (7.32-7.45) pH Units ABG pCO2 89 H* (35-45) mmHg ABG pO2 69 L (85-104) mmHg ABG HCO3 39 H (21-27) mEq/L ABG Total CO2 42 H (20-26) mEq/L ABG O2 Saturation 89 L (95-98) % ABG Base Excess 8 H (-2 to 3) mEq/L Yehuda Test N/A O2 Delivery Device Cannula Inspired O2 2.0 (1-15=lpm [id number]=%) Sodium (136-145) mEq/L Potassium (3.5-5.1) mEq/L Chloride (98-107) mEq/L Carbon Dioxide (23-29) mEq/L BUN (8-23) mg/dL Creatinine (0.60-1.20) mg/dL Est GFR ( Amer) (> 60) Est GFR (Non-Af Amer) (> 60) BUN/Creatinine Ratio (6-26) Glucose (70-105) mg/dL Calculated Osmolality (280-300) Lactic Acid 0.8 (0.5-2.2) mmol/L Calcium (8.6-10.3) mg/dL Total Bilirubin (0.3-1.0) mg/dL AST (13-39) Units/L ALT (7-52) Units/L Alkaline Phosphatase (34-104) Units/L Troponin I (< 0.04) ng/mL Serum Total Protein (6.4-8.9) g/dL Albumin (3.5-5.7) g/dL Globulin (2.4-3.5) g/dL Albumin/Globulin Ratio (1.1-2.2) TSH (0.340-5.600) mcIU/mL Urine Color Yellow (Yellow) Urine Clarity Turbid A (Clear) Urine pH 5.0 (5.0-8.0) pH Units Ur Specific [place] >= 1.030 H (1.010-1.025) Urine Protein >=300 H (Neg-Trace) mg/dL Urine Glucose (UA) Normal (Normal) mg/dL Urine Ketones Trace H (Negative) mg/dL Urine Blood Large H (Negative) Urine Nitrite Negative (Negative) Urine Bilirubin Moderate H (Negative) Urine Urobilinogen Normal (Normal) mg/dL Ur Leukocyte Esterase Small H (Negative) Urine Microscopic RBC TNTC H (0-3) per hpf Urine Microscopic WBC TNTC H (0-3) per hpf Ur Squamous Epith Cells Few (None-Few) per lpf Amorphous Sediment Moderate H (Few) Urine Bacteria Many H (None-Few) per hpf Urine Mucus Many H (Few) Ur Culture Indicated? YES A (NO) Person Notif of Dianne Morgan - Radiology Data Radiology results reviewed: Yes I reviewed the patient's radiology results. ITS Impressions Chest X-Ray 08/05/18 10:23 IMPRESSION: Cardiomegaly and mild pulmonary edema. D/ /05/2018 11:12:19 Orville Oquendo MD / jeferson Interpreting Provider: Orville Oquendo MD CT the abdomen was not obtainable because of the patient's body habitus she was larger than the gantry size but also over the weight limit for the table close examination reveals no abdominal pain or discomfort at this time we will hold on x-rays of the abdomen - EKG Data EKG attestation: Yes I reviewed and interpreted this EKG. EKG results narrative: Normal sinus rhythm nonspecific T-wave rate 84 MO 175 QRS 103 QT 398 access 80 TPA Checklist - LKW: 3-4.5 hrs Add. Warnings/Precautions Patient/family understanding: The patient/family members have been counseled and understood the risk, benefit, and alternatives of treatment.
[2018-08-05 11:11] LABS: Basophils # 0.1 K/mcL (0.0-0.2); Basophils % 0.5 %; Eosinophils # 0.2 K/mcL (0.0-0.6); Eosinophils % 1.4 %; Hematocrit 36.4 % (35.3-44.9); Hemoglobin 11.3 g/dL (11.5-15.4); Immature Granulocytes % 1.5 % (0-4); Lymphocytes # 3.1 K/mcL (0.6-4.6); Lymphocytes % 28.2 %; Mean Corpuscular Hemoglobin 30.5 pg (28.0-33.3); Mean Corpuscular Volume 98.4 fL (83.0-100.0); Mean Platelet Volume 12.2 fL (9.4-12.4); Monocytes # 0.8 K/mcL (0.0-1.3); Monocytes % 7.5 %; Neutrophils # 6.7 K/mcL (1.6-8.9); Platelet Count 176 K/mcL (140-400); Red Cell Distribution Width 15.6 % (11.5-14.5); Segmented Neutrophils % 60.9 %
[2018-08-05 11:15] LABS: INR 1.1; Prothrombin Time 12.7 Seconds (9.4-12.1)
[2018-08-05 11:18] LABS: Activated Partial Thrombo Time 25.4 Seconds (26.0-36.0)
[2018-08-05 11:33] LABS: Albumin 3.3 g/dL (3.5-5.7); Bilirubin,Total 0.3 mg/dL (0.3-1.0); Calcium 8.4 mg/dL (8.6-10.3); Globulin 3.4 g/dL (2.4-3.5); Potassium 4.6 mEq/L (3.5-5.1); Total Protein 6.7 g/dL (6.4-8.9); Troponin I 0.04 ng/mL (< 0.04)
[2018-08-05 11:38] LABS: ABG Base Excess 8 mEq/L (-2 to 3); ABG HCO3 39 mEq/L (21-27); ABG Oxygen Saturation 89 % (95-98); ABG PCO2 89 mmHg (35-45); ABG PH 7.25 pH Units (7.32-7.45); ABG PO2 69 mmHg (85-104); ABG TCO2 42 mEq/L (20-26)
[2018-08-05 11:39] LABS: Platelet Estimate Normal (Normal)
[2018-08-05 11:40] LABS: Bilirubin,Urine Moderate (Negative); Blood,Urine Large (Negative); Clarity,Urine Turbid (Clear); Color,Urine Yellow (Yellow); Glucose,Urine (UA) Normal (Normal); Ketones,Urine Trace mg/dL (Negative); Leukocyte Esterase,Urine Small (Negative); Nitrite,Urine Negative (Negative); Protein,Urine >=300 mg/dL (Neg-Trace); Specific Gravity,Urine >= 1.030 (1.010-1.025); Urobilinogen,Urine Normal (Normal)
[2018-08-05 11:48] LABS: Amorphous Sediment,Urine Moderate (Few); Bacteria,Urine Many per hpf (None-Few); Mucus,Urine Many (Few); RBC,Urine TNTC per hpf (0-3); Squamous Epithelial Cell,Urine Few per lpf (None-Few); WBC,Urine TNTC per hpf (0-3)
[2018-08-05 11:53] LABS: Thyroid Stimulating Hormone 2.292 mcIU/mL (0.340-5.600)
[2018-08-05] MEDS ORDERED: Dextrose Gel 15 GM/37.5 ML TUBE PO PRN ×2 (14:37)
[2018-08-05] MEDS ORDERED: TRULICITY SQ SCH (14:37)
[2018-08-05] MEDS ORDERED: Methyl Salicylate/Menthol 28 GM TUBE TP PRN (14:37)
[2018-08-05] MEDS ORDERED: D5% in Water 1,000 ML IVC PRN (14:37)
[2018-08-05] MEDS ORDERED: traMADol 50 MG TABLET PO PRN (14:37)
[2018-08-05] MEDS ORDERED: Naloxone 0.4 MG/ML INJ IVP PRN (14:37)
[2018-08-05] MEDS ORDERED: Artificial Tears SOLN 15 ML BOTTLE OP PRN (14:37)
[2018-08-05] MEDS ORDERED: *HR* Dextrose 50 % in Water (Vial) 50 ML VIAL IVP PRN (14:37)
[2018-08-05] MEDS ORDERED: Bisacodyl 10 MG RECTAL SUPPOSITORY RC PRN (14:37)
[2018-08-05] MEDS ORDERED: Furosemide 40 MG TABLET PO SCH (17:00)
[2018-08-05] MEDS: Insulin LISPRO 300 UNITS/3 ML VIAL SQ SCH ×2 (17:13→17:20)
[2018-08-05] MEDS: Ondansetron 4 MG/2 ML VIAL IVP PRN (17:13)
[2018-08-05] MEDS: Gabapentin 100 MG CAPSULE PO SCH ×2 (17:16→21:53)
[2018-08-05] MEDS: Baclofen 10 MG TABLET PO SCH (17:19)
[2018-08-05] MEDS: *HR* Glimepiride 2 MG TABLET PO SCH (17:20)
[2018-08-05] MEDS ORDERED: Levalbuterol 1 PUFF INHALER IH SCH (18:00)
[2018-08-05] MEDS ORDERED: *HR* Rivaroxaban 10 MG TABLET PO SCH (19:00)
[2018-08-05] MEDS: Insulin DETEMIR 100 UNIT/ML X5UNITS SQ SCH (20:30)
[2018-08-05] MEDS: Clotrimazole 1% CRM 15 GM TUBE TP SCH (20:30)
[2018-08-05] MEDS: Famotidine 20 MG TABLET PO SCH (20:37)
[2018-08-05] MEDS ORDERED: Cefdinir 300 MG CAPSULE PO SCH (21:00)
--- NOTE | 2018-08-05 23:07 | Electrocardiograph Report ---
[place] [id number] Test Date: 2018-08-05 Pat Name: Germaine Luis Department: EDP-16 Room: [facility] Gender: F Almond Blancher Operator: : [id number] Requested By: Maggie Morgan Order Number: [id number] Reading MD: Camila Flower Measurements Intervals [place] Rate: 84 P: 38 NE: 175 QRS: 80 QRSD: 103 T: 40 QT: 398 QTc: 471 Interpretive Statements Sinus rhythm Atrial premature complexes Electronically Signed On 08-05-2018 23:05:59 EDT by Camila Flower
[2018-08-06] MEDS: Lactobacillus 1 EACH CAP.SPRINK PO SCH (06:07)
[2018-08-06] MEDS: Cholecalciferol (D-3) 1,000 UNIT (25MCG) TABLET PO SCH (06:07)
[2018-08-06] MEDS: Cyanocobalamin (B-12) 1,000 MCG TABLET PO SCH (06:07)
[2018-08-06] MEDS: Diltiazem CD (24hr) 180 MG CAPSULE PO SCH (06:08)
[2018-08-06] MEDS: Baclofen 10 MG TABLET PO SCH ×2 (06:08→20:48)
[2018-08-06] MEDS: *HR* Glimepiride 2 MG TABLET PO SCH ×2 (06:08→20:12)
[2018-08-06] MEDS: Gabapentin 100 MG CAPSULE PO SCH ×2 (06:11→14:28)
[2018-08-06 07:49] LABS: Basophils % 0.4 %; Eosinophils # 0.1 K/mcL (0.0-0.6); Eosinophils % 1.5 %; Hematocrit 34.9 % (35.3-44.9); Immature Granulocytes % 1.4 % (0-4); Lymphocytes # 3.7 K/mcL (0.6-4.6); Lymphocytes % 40.1 %; Mean Corpuscular HGB Conc 31.5 g/dL (31.6-35.5); Mean Corpuscular Hemoglobin 30.8 pg (28.0-33.3); Mean Corpuscular Volume 97.8 fL (83.0-100.0); Mean Platelet Volume 11.6 fL (9.4-12.4); Monocytes # 0.7 K/mcL (0.0-1.3); Monocytes % 7.7 %; Neutrophils # 4.5 K/mcL (1.6-8.9); Nucleated Red Blood Cells 0.3 /100 WBC (0); Platelet Count 220 K/mcL (140-400); Red Blood Count 3.57 M/mcL (3.82-4.97); Red Cell Distribution Width 15.3 % (11.5-14.5); Segmented Neutrophils % 48.9 %; White Blood Count 9.2 K/mcL (4.3-11.1)
[2018-08-06] MEDS: FLUOROMETHOLONE OPH OP SCH (08:30)
[2018-08-06] MEDS: Insulin LISPRO 300 UNITS/3 ML VIAL SQ SCH ×4 (08:44→16:51)
[2018-08-06] MEDS ORDERED: *HR* FentaNYL PATCH 25 MCG PATCH TD SCH (09:00)
[2018-08-06 09:34] LABS: Troponin I 0.04 ng/mL (< 0.04)
[2018-08-06 10:20] LABS: Calcium 8.2 mg/dL (8.6-10.3); Magnesium 1.8 mg/dL (1.6-2.6)
[2018-08-06] MEDS: Clotrimazole 1% CRM 15 GM TUBE TP SCH ×2 (10:51→20:50)
--- NOTE | 2018-08-06 11:22 | Internal Med History&Physical ---
Date of Encounter: 08/06/18 Time of Encounter: 10:50 Assessment and Plan (1) Acute respiratory insufficiency Current visit: Yes Status: Acute She will be placed on BiPAP. ABGs will be monitored. (2) Conjunctivitis Current visit: Yes Status: Acute She will be given TobraDex eyedrops. Qualifiers: Conjunctivitis type: unspecified Laterality: bilateral Qualified Code(s): H10.9 - Unspecified conjunctivitis (3) Anemia Current visit: Yes Status: Acute Anemia testing will be done in a.m. Qualifiers: Anemia type: unspecified type Qualified Code(s): D64.9 - Anemia, unspecifie d (4) Congestive heart failure Current visit: No Status: Acute Hold Lasix and lisinopril for now due to azotemia. Start low-dose Coreg. Qualifiers: Heart failure type: combined systolic and diastolic Heart failure chronicity: acute on chronic Qualified Code(s): I50.43 - Acute on chronic combined systolic (congestive) and diastolic (congestive) heart failure (5) Azotemia Current visit: No Status: Acute Acute on chronic. Gentle IV fluids will be given. Lasix will be held and renal indices monitored. (6) Low vitamin D level Current visit: No Status: Chronic Check vitamin D level in a.m. (7) B12 deficiency Current visit: No Status: Acute Check B12 level with anemia testing in a.m. Internal Medicine - H&P: HPI Chief complaint: Lethargy Admitted From: Emergency Dept Plans for Post Hospital Care: Home History of present illness: Ms. Luis is a 63 year old female who was sent to emergency room after [facility] staff noted her to have mental status changes with lethargy. She was evaluated in ER and was found to have acute respiratory insufficiency with hypercarbia. She was placed on BiPAP and admitted to [facility] floor for ongoing care needs. She was hospitalized last at [facility] April 2018 with pneumonia. Her respiratory history is significant for being a lifelong nonsmoker. She was initially placed on BiPAP for acute on chronic respiratory failure with hypoxemia and hypercapnia April 2017 at time of discharge from [facility] She reports using BiPAP at bedtime and when necessary during day time at the SNF. Past Med Surg Social Fam HX - Past Medical History Medical history: atrial fibrillation, CHF, diabetes, GERD, hypertension, pulmonary embolus, renal disease, other Additional medical history: chronic respr failure. hypoxemia. cellulitis left lower limb. histroy of pe Psychiatric history: anxiety, depression - Past Surgical History Surgical History: hysterectomy, knee replacement Additional surgical history: thyroid cyst removed. left knee replacement - Social History Smoking Status: Never smoker Smokeless Tobacco Status: No Alcohol use: none Drug use: none - Family History Father Hx Family Cardiac Disorders: Yes ([place]) Hx Family Respiratory Disorders: Yes (Emphysema) Hx Family Cancer: No Hx Family GI Disorders: No Hx Family Endocrine Disorder: No Hx Family Neuromuscular Disorders: No Hx Family Neurologic Disorders: No Hx Family HEENT Disorders: No Hx Family Autoimmune Disorders: No Mother Family Member Ethnicity: Non- Living Status: Hx Family Cardiac Disorders: No Hx Family Respiratory Disorders: Yes (Lung cancer) Hx Family Cancer: Yes (Small cell carcinoma) Hx Family GI Disorders: No Hx Family Endocrine Disorder: No Hx Family Neuromuscular Disorders: No Hx Family Neurologic Disorders: No Hx Family HEENT Disorders: No Hx Family Autoimmune Disorders: No Internal Medicine - H&P: Meds Ranitidine HCl [Heartburn Relief] 150 mg PO 2200 10/14/15 [History] FentaNYL PATCH [Duragesic] 25 mcg TD Q72H #3 patch.td72 10/18/15 [Rx] Acetaminophen [Extra Strength Non-Aspirin] 500 mg PO Q6H PRN 04/30/18 [History] Baclofen [Lioresal] 10 mg PO 0700,1900 04/30/18 [History] Ciprofloxacin HCl [Cipro] 250 mg PO 0700 04/30/18 [History] Dulaglutide [Trulicity] 1.5 mg SQ TU 04/30/18 [History] Fluorometholone [Fml Forte] 1 drop BOTH EYES DAILY 04/30/18 [History] Glimepiride [Amaryl] 4 mg PO 0700,1900 04/30/18 [History] Insulin ASPART [Novolog Flexpen] 0 unit SQ ACHS 04/30/18 [History] Insulin ASPART [Novolog Flexpen] 34 unit SQ TIDWM 04/30/18 [History] Insulin Degludec [Tresiba Flextouch U-100] 40 unit SQ HS 04/30/18 [History] Lactobacillus Acidophilus [Acidophilus] 2 cap PO 0700 04/30/18 [History] Levalbuterol Tartrate [Xopenex Hfa] 2 puff IH 0000,0600,1200,1800 04/30/18 [History] Montelukast [Singulair] 10 mg PO HS 04/30/18 [History] Oxybutynin Chloride [Ditropan Xl] 5 mg PO 0000,0600,1200,1800 04/30/18 [History] Polyvinyl Alcohol/Povidone [Artificial Tears Drops] 1 drop OP DAILY PRN 04/30/18 [History] Albuterol Sulfate [Ventolin Hfa] 2 puff IH Q4H PRN 05/24/18 [History] Allopurinol [Zyloprim 300 MG] 300 mg PO 0700 05/24/18 [History] Bisacodyl [Gentle Laxative] 10 mg RC DAILY PRN 05/24/18 [History] Cholecalciferol (D-3) [Vitamin D] 2,000 unit PO 0700 05/24/18 [History] Cyanocobalamin (B-12) [Vitamin B12] 1,000 mcg PO 0700 05/24/18 [History] Docusate [Colace] 200 mg PO 0700,1900 05/24/18 [History] Gabapentin [Neurontin] 200 mg PO 0700,1500,2300 05/24/18 [History] Lactulose 20 gm PO DAILY PRN 05/24/18 [History] Lisinopril [Zestril] 2.5 mg PO 0700 05/24/18 [History] Menthol [Biofreeze] 1 appl TP TID PRN 05/24/18 [History] Polyethylene Glycol 3350 [MiraLAX] 17 gm PO DAILY PRN 05/24/18 [History] Rivaroxaban [Xarelto] 20 mg PO 1900 05/24/18 [History] Terbinafine HCl [Antifungal] 1 appl TP BID 05/24/18 [History] Tramadol HCl [Ultram] 50 mg PO QID PRN 05/24/18 [History] dilTIAZem HCl [Diltiazem 24Hr Cd] 180 mg PO 0700 05/24/18 [History] Cefdinir [Omnicef] 300 mg PO BID #6 capsule 05/27/18 [Rx] Furosemide [Lasix] 40 mg PO BID #0 05/27/18 [Rx] Allergy/AdvReac Type Severity Reaction Status Date / Time indomethacin AdvReac Hives Verified 05/24/18 13:08 All Systems PM: A 10-system review of systems was performed and is negative for pertinent findings except as documented above in the HPI. Review of systems: Review of systems from her April 2018 [facility] hospitalization were reviewed and revised as below. Gen.: Her weight is slightly decreased from 209.6 kg on 04/10/2017 to present weight of 194.138 kilograms. Cardiovascular: She has history of hypertension. She reports pulmonary embolism 2012 and has been maintained on OAC since then. She initially used Coumadin but is now on Xarelto. She denies [place]. Old chart reports a history of atrial fibrillation. Echocardiogram 04/10/2017 showed technically challenging study due to body habitus. LVEF was 50%. The interventricular septum and posterior wall thickness measurements were 1.10 and 1.20 cm respectively. E/A ratio was 1.2. There was mild mitral regurgitation and mild tricuspid regurgitation. Respiratory: As per history of present illness GI: She denies disorders of her liver gallbladder or exocrine pancreas : She has history of "bladder spasms" and is on oxybutynin. She has a chronic indwelling Anders catheter at the [facility]. She denies other kidney or bladder disorders. Neurologic: She denies large distribution strokes or seizures. Endocrine: She was diagnosed with DM 2 approximately 20 years ago. She reports hypothyroidism but TSH was normal at 2.292 on 08/05/2018. She denies significant hyperlipidemia Hematology/oncology: She denies blood disorders cancers or anemia Psychiatric: She denies anxiety depression or other mental health issues [place] skeletal: She has DJD and gout but denies other bone joint or muscle disorders. - Constitutional Vitals: Temp Pulse Resp BP Pulse Ox 97.2 F L 76 22 127/73 98 08/06/18 06:45 08/06/18 06:45 08/06/18 06:45 08/06/18 06:45 08/06/18 06:45 Exam: Gen.: She is a well-developed massively obese female lying in bed who is lethargic. She awakens for a few seconds and answers questions but quickly drifts back off to sleep HEENT: Head is atraumatic and normocephalic. Eyes: She has bilateral purulent drainage. There is no scleral icterus. Mouth: Mucosa is moist. Neck: She has a large jowl. There is no thyromegaly or adenopathy noted. Heart: Regular without murmurs gallops or ectopics Lungs: No wheezes or crackles are heard. Abdomen: She has a massive pannus. Abdomen is nontender to palpation. Organ size cannot be determined. She has a well-healed longitudinal midline scar. Extremities: She has chronic venous stasis pigmentation changes with acute venous stasis and nodules bilaterally on the lower legs, significant more on the left lower leg than the right. There is 2+ edema of the dorsum of the feet bilaterally. She has a well-healed scar over the left knee. Neurologic: Mental status: She is lethargic but awakens and answers a few quest ions. Cranial nerves: Smile is symmetric. Forehead wrinkles bilaterally. Tongue protrudes midline. EOMI. Motor: She cannot attempt pronator drift testing. No further neurologic testing is attempted. Skin: Warm and dry with leg erythema as above. Internal Med - H&P Results - Labs CBC & Chem 7: 08/06/18 07:30 08/06/18 07:30 Labs: Short CBC 08/05/18 08/06/18 Range/Units 10:53 07:30 WBC 11.0 9.2 (4.3-11.1) K/mcL Hgb 11.3 L 11.0 L (11.5-15.4) g/dL Hct 36.4 34.9 L (35.3-44.9) % Plt Count 176 220 (140-400) K/mcL Neutrophils # 6.7 4.5 (1.6-8.9) K/mcL BMP 08/05/18 08/06/18 10:53 07:30 Sodium 131 L 128 L Potassium 4.6 5.0 Chloride 89 L 87 L Carbon Dioxide 36 H 35 H BUN 63 H 64 H Creatinine 1.57 H 1.60 H Glucose 195 H 157 H Calcium 8.4 L 8.2 L Cardiac Enzymes 08/05/18 08/06/18 Range/Units 10:53 07:30 Troponin I 0.04 H* 0.04 H* (< 0.04) ng/mL Liver Function 08/05/18 Range/Units 10:53 Total Bilirubin 0.3 (0.3-1.0) mg/dL AST 19 (13-39) Units/L ALT 11 (7-52) Units/L Alkaline Phosphatase 75 (34-104) Units/L Albumin 3.3 L (3.5-5.7) g/dL Urine 08/05/18 Range/Units 11:26 Urine Color Yellow (Yellow) Urine Clarity Turbid A (Clear) Urine pH 5.0 (5.0-8.0) pH Units Ur Specific Cornell >= 1.030 H (1.010-1.025) Urine Protein >=300 H (Neg-Trace) mg/dL Urine Glucose (UA) Normal (Normal) mg/dL - ABG Interpretation ABG results: 08/05/18 11:32 ABG pH 7.25 L ABG pCO2 89 H* ABG pO2 69 L ABG HCO3 39 H ABG Total CO2 42 H ABG O2 Saturation 89 L ABG Base Excess 8 H - Impressions ITS Impressions Chest X-Ray 08/05/18 10:23 IMPRESSION: Cardiomegaly and mild pulmonary edema. D/ /05/2018 11:12:19 Orville Oquendo MD / [email or web address] Interpreting Provider: Orville Oquendo MD
[2018-08-06] MEDS: Ondansetron 4 MG/2 ML VIAL IVP PRN (11:47)
[2018-08-06 13:18] LABS: % Iron Saturation 18 % (15-50); Iron 60 mcg/dL (50-170); Transferrin 243 mg/dL (203-362)
[2018-08-06 13:30] LABS: Ferritin 31 ng/mL (10-120)
[2018-08-06 13:36] LABS: Folate 6.1 ng/mL (3.0-16.0)
[2018-08-06] MEDS: Acetaminophen 325 MG TABLET PO SCH ×2 (13:48→18:22)
[2018-08-06] MEDS: Tobramycin/Dex Opth DROPS 2.5 ML BOTTLE LEFT EYE SCH ×2 (14:26→20:48)
[2018-08-06] MEDS: Tobramycin/Dex Opth DROPS 2.5 ML BOTTLE RIGHT EYE SCH ×2 (14:27→20:48)
[2018-08-06 14:35] LABS: ABG Base Excess 7 mEq/L (-2 to 3); ABG HCO3 38 mEq/L (21-27); ABG Oxygen Saturation 92 % (95-98); ABG PCO2 93 mmHg (35-45); ABG PH 7.22 pH Units (7.32-7.45); ABG PO2 82 mmHg (85-104); ABG TCO2 41 mEq/L (20-26)
[2018-08-06 16:11] LABS: ABG Base Excess 6 mEq/L (-2 to 3); ABG HCO3 37 mEq/L (21-27); ABG Oxygen Saturation 93 % (95-98); ABG PCO2 90 mmHg (35-45); ABG PH 7.22 pH Units (7.32-7.45); ABG PO2 83 mmHg (85-104); ABG TCO2 40 mEq/L (20-26)
[2018-08-06 18:31] LABS: ABG Base Excess 10 mEq/L (-2 to 3); ABG HCO3 41 mEq/L (21-27); ABG Oxygen Saturation 96 % (95-98); ABG PCO2 86 mmHg (35-45); ABG PH 7.28 pH Units (7.32-7.45); ABG PO2 101 mmHg (85-104); ABG TCO2 43 mEq/L (20-26)
[2018-08-06] MEDS: *HR* Rivaroxaban 10 MG TABLET PO SCH (18:38)
[2018-08-06] MEDS: Insulin DETEMIR 100 UNIT/ML X5UNITS SQ SCH (20:13)
[2018-08-06] MEDS: Famotidine 20 MG TABLET PO SCH (20:48)
[2018-08-06] MEDS ORDERED: ALPRAZolam 0.5 MG TABLET PO PRN (22:31)
[2018-08-07] MEDS: Acetaminophen 325 MG TABLET PO SCH ×5 (00:33→23:20)
[2018-08-07] MEDS: Gabapentin 100 MG CAPSULE PO SCH ×4 (00:33→23:20)
[2018-08-07] MEDS: Tobramycin/Dex Opth DROPS 2.5 ML BOTTLE LEFT EYE SCH ×3 (04:57→20:23)
[2018-08-07] MEDS: Tobramycin/Dex Opth DROPS 2.5 ML BOTTLE RIGHT EYE SCH ×3 (04:57→20:23)
[2018-08-07] MEDS: Cyanocobalamin (B-12) 1,000 MCG TABLET PO SCH (06:45)
[2018-08-07] MEDS: Lactobacillus 1 EACH CAP.SPRINK PO SCH (06:45)
[2018-08-07] MEDS: Baclofen 10 MG TABLET PO SCH ×2 (06:45→17:51)
[2018-08-07] MEDS: Diltiazem CD (24hr) 180 MG CAPSULE PO SCH (06:45)
[2018-08-07] MEDS: Cholecalciferol (D-3) 1,000 UNIT (25MCG) TABLET PO SCH (06:45)
[2018-08-07] MEDS: *HR* Glimepiride 2 MG TABLET PO SCH ×2 (06:46→17:44)
[2018-08-07 06:49] LABS: Basophils % 0.5 %; Eosinophils # 0.2 K/mcL (0.0-0.6); Hematocrit 31.9 % (35.3-44.9); Hemoglobin 10.2 g/dL (11.5-15.4); Immature Granulocytes % 0.9 % (0-4); Lymphocytes # 3.3 K/mcL (0.6-4.6); Lymphocytes % 41.4 %; Mean Corpuscular Hemoglobin 30.5 pg (28.0-33.3); Mean Corpuscular Volume 95.5 fL (83.0-100.0); Mean Platelet Volume 12.3 fL (9.4-12.4); Monocytes # 0.7 K/mcL (0.0-1.3); Neutrophils # 3.6 K/mcL (1.6-8.9); Nucleated Red Blood Cells 0.4 /100 WBC (0); Platelet Count 179 K/mcL (140-400); Red Blood Count 3.34 M/mcL (3.82-4.97); Red Cell Distribution Width 14.9 % (11.5-14.5); Segmented Neutrophils % 46.2 %; White Blood Count 7.9 K/mcL (4.3-11.1)
[2018-08-07 07:06] LABS: Platelet Estimate Normal (Normal)
[2018-08-07 07:11] LABS: Calcium 8.2 mg/dL (8.6-10.3); Potassium 4.5 mEq/L (3.5-5.1)
--- NOTE | 2018-08-07 09:47 | Internal Med Progress Note ---
Date of Encounter: 08/07/18 Time of Encounter: 09:40 - Assessment and plan (1) Acute respiratory insufficiency Current Visit: Yes Status: Acute Assessment and plan: August 07. ABG will be done stat. (2) Conjunctivitis Current Visit: Yes Status: Acute Assessment and plan: August 07. Continue TobraDex eyedrops Qualifiers: Conjunctivitis type: unspecified Laterality: bilateral Qualified Code(s): H10.9 - Unspecified conjunctivitis (3) Anemia Current Visit: Yes Status: Acute Assessment and plan: August 07. Anemia testing showed iron 60, transferrin saturation 18%, transferrin 243, ferritin 31, B12 432, and folate 6.1. Hemoglobin has decreased to 10.2 to day likely due in part to hydration. Continue to monitor labs. Qualifiers: Anemia type: unspecified type Qualified Code(s): D64.9 - Anemia, uns pecified (4) Congestive heart failure Current Visit: No Status: Acute Assessment and plan: August 07. Continue Coreg and remain off lisinopril and Lasix. BN peptide minimally higher at 198. Qualifiers: Heart failure type: combined systolic and diastolic Heart failure chronicity: acute on chronic Qualified Code(s): I50.43 - Acute on chronic combined systolic (congestive) and diastolic (congestive) heart failure (5) Azotemia Current Visit: No Status: Acute Assessment and plan: August 07. Creatinine improved to 1.35 with estimated GFR 39. Continue present Rx. (6) Low vitamin D level Current Visit: No Status: Chronic Assessment and plan: August 07. Vitamin D level pending - Subjective Interval history: August 07. No new problems have arisen. - Constitutional Vitals: Temp Pulse Resp BP Pulse Ox 98.6 F 76 28 146/71 95 08/07/18 06:58 08/07/18 06:58 08/07/18 06:58 08/07/18 06:58 08/07/18 06:58 Exam: She is lying in bed wearing BiPAP. She does not respond to voice or light touch. Extremities show 2+ edema on dorsum of the feet. Heart is regular without murmurs gallops or ectopics. No wheezing is heard anteriorly. I reviewed her medications and lab results. Internal Medicine: Result - Labs CBC & Chem 7: 08/07/18 06:42 08/07/18 06:42 Labs: Short CBC 08/07/18 Range/Units 06:42 WBC 7.9 (4.3-11.1) K/mcL Hgb 10.2 L (11.5-15.4) g/dL Hct 31.9 L (35.3-44.9) % Plt Count 179 (140-400) K/mcL Neutrophils # 3.6 (1.6-8.9) K/mcL BMP 08/06/18 08/07/18 07:30 06:42 Sodium 128 L 128 L Potassium 5.0 4.5 Chloride 87 L 89 L Carbon Dioxide 35 H 35 H BUN 64 H 63 H Creatinine 1.60 H 1.35 H Glucose 157 H 92 Calcium 8.2 L 8.2 L - ABG Interpretation ABG results: ABG ABG pH 7.28 pH Units (7.32-7.45) L 08/06/18 18:23 ABG pCO2 86 mmHg (35-45) H* 08/06/18 18:23 ABG pO2 101 mmHg (85-104) 08/06/18 18:23 ABG O2 Saturation 96 % (95-98) 08/06/18 18:23 PT/INR, D-dimer PT 12.7 Seconds (9.4-12.1) H 08/05/18 10:53 - Impressions Impressions Chest X-Ray 08/05/18 10:23 IMPRESSION: Cardiomegaly and mild pulmonary edema. D/ / 08/05/2018 11:12:19 Orville Oquendo MD / [email or web address] Interpreting Provider: Orville Oquendo MD Consult Discharge Plan - Plan Referrals: Rajeev Judge MD [Primary Care Provider] - 1 week
[2018-08-07] MEDS: Insulin LISPRO 300 UNITS/3 ML VIAL SQ SCH ×3 (10:11→17:43)
[2018-08-07] MEDS: Clotrimazole 1% CRM 15 GM TUBE TP SCH ×2 (10:13→20:23)
[2018-08-07] MEDS: FLUOROMETHOLONE OPH OP SCH (10:14)
[2018-08-07 10:38] LABS: ABG Base Excess 8 mEq/L (-2 to 3); ABG HCO3 37 mEq/L (21-27); ABG Oxygen Saturation 93 % (95-98); ABG PCO2 74 mmHg (35-45); ABG PH 7.31 pH Units (7.32-7.45); ABG PO2 77 mmHg (85-104); ABG TCO2 39 mEq/L (20-26)
[2018-08-07] MEDS: *HR* Rivaroxaban 10 MG TABLET PO SCH (17:50)
[2018-08-07] MEDS ORDERED: Insulin DETEMIR 100 UNIT/ML per UNIT SQ SCH (21:00)
[2018-08-07] MEDS: Famotidine 20 MG TABLET PO SCH (23:20)
[2018-08-08] MEDS: Tobramycin/Dex Opth DROPS 2.5 ML BOTTLE LEFT EYE SCH (04:05)
[2018-08-08] MEDS: Tobramycin/Dex Opth DROPS 2.5 ML BOTTLE RIGHT EYE SCH (04:06)
[2018-08-08] MEDS: Acetaminophen 325 MG TABLET PO SCH (06:12)
[2018-08-08] MEDS: Lactobacillus 1 EACH CAP.SPRINK PO SCH (06:12)
[2018-08-08] MEDS: Baclofen 10 MG TABLET PO SCH (06:13)
[2018-08-08] MEDS: Cholecalciferol (D-3) 1,000 UNIT (25MCG) TABLET PO SCH (06:13)
[2018-08-08] MEDS: Cyanocobalamin (B-12) 1,000 MCG TABLET PO SCH (06:13)
[2018-08-08] MEDS: Gabapentin 100 MG CAPSULE PO SCH (06:13)
[2018-08-08] MEDS: Diltiazem CD (24hr) 180 MG CAPSULE PO SCH (06:14)
[2018-08-08] MEDS: *HR* Glimepiride 2 MG TABLET PO SCH (07:33)
[2018-08-08] MEDS: Insulin LISPRO 300 UNITS/3 ML VIAL SQ SCH (07:33)
[2018-08-08 07:36] VITALS: BP 135/65
[2018-08-08] MEDS: FLUOROMETHOLONE OPH OP SCH (08:04)
[2018-08-08 08:48] LABS: Basophils # 0.1 K/mcL (0.0-0.2); Basophils % 0.8 %; Eosinophils # 0.2 K/mcL (0.0-0.6); Eosinophils % 2.6 %; Hematocrit 34.9 % (35.3-44.9); Hemoglobin 11.3 g/dL (11.5-15.4); Immature Granulocytes % 1.2 % (0-4); Lymphocytes # 2.6 K/mcL (0.6-4.6); Lymphocytes % 35.4 %; Mean Corpuscular HGB Conc 32.4 g/dL (31.6-35.5); Mean Corpuscular Hemoglobin 30.1 pg (28.0-33.3); Mean Corpuscular Volume 93.1 fL (83.0-100.0); Monocytes # 0.6 K/mcL (0.0-1.3); Monocytes % 8.5 %; Neutrophils # 3.8 K/mcL (1.6-8.9); Platelet Count 243 K/mcL (140-400); Red Blood Count 3.75 M/mcL (3.82-4.97); Red Cell Distribution Width 14.7 % (11.5-14.5); Segmented Neutrophils % 51.5 %; White Blood Count 7.4 K/mcL (4.3-11.1)
--- NOTE | 2018-08-08 09:41 | Discharge Summary ---
Orders not resulted at time of discharge: Pending orders 08/05/18 10:53 Culture,Blood [BC] Stat 08/05/18 11:26 Culture,Urine [RM] Stat 08/08/18 08:03 Basic Metabolic Panel AM 0400 Date of Encounter: 08/08/18 Time of Encounter: 09:25 - Discharge Diagnosis (1) Acute respiratory insufficiency Priority: Primary Status: Acute (2) Conjunctivitis Priority: Secondary Status: Acute Qualifiers: Conjunctivitis type: unspecified Laterality: bilateral Qualified Code(s): H10.9 - Unspecified conjunctivitis (3) Anemia Priority: Secondary Status: Acute Qualifiers: Anemia type: unspecified type Qualified Code(s): D64.9 - Anemia, unspecified (4) Congestive heart failure Priority: Secondary Status: Chronic Qualifiers: Heart failure type: combined systolic and diastolic Heart failure chronicity: acute on chronic Qualified Code(s): I50.43 - Acute on chronic combined systolic (congestive) and diastolic (congestive) heart failure (5) Azotemia Priority: Secondary Status: Acute (6) Low vitamin D level Priority: Secondary Status: Chronic Hospital course: Ms. Lius is a 63 year old female who was sent to emergency room after snf staff noted her to have mental status changes with lethargy. She was evaluated in ER and was found to have acute respiratory insufficiency with hypercarbia. She was placed on BiPAP and admitted to [facility] floor for ongoing care needs. Initial orders were written by the emergency room physician. I saw her on August 06 and performed a history and physical. She was placed on BiPAP which was required for several hours daily. ABG showed gradual improvement with pH rising to 7.31 by day prior to discharge. Her mental status returned what I felt was baseline. She was able tolerate short periods off BiPAP using oxygen by nasal cannula. She will continue this regimen at the [facility]. Duragesic patch was discontinued to lessen sedation and respiratory suppression. She will remain off this at discharge. Lisinopril and Lasix were discontinued. Her creatinine decreased to 1.35 by August 07. She will be given Bumex 1 mg every other day at the SNF and will remain off lisinopril. Coreg and Imdur were started for blood pressure and heart failure. Additional lab work showed vitamin B12 level 432, vitamin D level 25, folate 6.1, and TSH 2.292. Preliminary urine culture report available at discharge showed growth of yeast species and gram-negative jourdan. Since she has indwelling Anders catheter and had no evidence of infection no antibiotics will be given. On August 08 she was stable for discharge back to [facility] where she will follow with Dr. Judge. She will continue BiPAP and oxygen use as previously prescribed. - Time Spent with Patient Total time spent providing and/or coordinating discharge services: - Discharge Medications Prescriptions: New Bumetanide [Bumex] 1 mg PO Q48H 365 Days tablet Carvedilol 12.5 mg PO BID 365 Days tab Isosorbide MONOnitrate (24 HR) [Imdur] 30 mg PO DAILY 365 Days tab.er.24h Continued Ranitidine HCl [Heartburn Relief] 150 mg PO 2200 Allopurinol [Zyloprim 300 MG] 300 mg PO 0700 Cholecalciferol (D-3) [Vitamin D] 2,000 unit PO 0700 Cyanocobalamin (B-12) [Vitamin B12] 1,000 mcg PO 0700 dilTIAZem HCl [Diltiazem 24Hr Cd] 180 mg PO 0700 Docusate [Colace] 200 mg PO 0700,1900 Gabapentin [Neurontin] 200 mg PO 0700,1500,2300 Rivaroxaban [Xarelto] 20 mg PO 1900 Terbinafine HCl [Antifungal] 1 appl TP BID Tramadol HCl [Ultram] 50 mg PO QID PRN PRN Reason: Mild To Moderate Pain Albuterol Sulfate [Ventolin Hfa] 2 puff IH Q4H PRN PRN Reason: Shortness Of Breath Polyethylene Glycol 3350 [MiraLAX] 17 gm PO DAILY PRN PRN Reason: Constipation Lactulose 20 gm PO DAILY PRN PRN Reason: Constipation Bisacodyl [Gentle Laxative] 10 mg RC DAILY PRN PRN Reason: Constipation Menthol [Biofreeze] 1 appl TP TID PRN PRN Reason: Muscle Pain Fluorometholone [Fml Forte] 1 drop BOTH EYES DAILY Acetaminophen [Extra Strength Non-Aspirin] 500 mg PO Q6H PRN PRN Reason: Pain Insulin ASPART [Novolog Flexpen] 0 unit SQ ACHS Polyvinyl Alcohol/Povidone [Artificial Tears Drops] 1 drop OP DAILY PRN PRN Reason: Dry Eyes Levalbuterol Tartrate [Xopenex Hfa] 2 puff IH 0000,0600,1200,1800 Dulaglutide [Trulicity] 1.5 mg SQ TU Insulin Degludec [Tresiba Flextouch U-100] 40 unit SQ HS Insulin ASPART [Novolog Flexpen] 34 unit SQ TIDWM Montelukast [Singulair] 10 mg PO HS Glimepiride [Amaryl] 4 mg PO 0700,1900 Baclofen [Lioresal] 10 mg PO 0700,1900 Discontinued FentaNYL PATCH [Duragesic] 25 mcg TD Q72H #3 patch.td72 Lisinopril [Zestril] 2.5 mg PO 0700 Cefdinir [Omnicef] 300 mg PO BID #6 capsule Furosemide [Lasix] 40 mg PO BID #0 Oxybutynin Chloride [Ditropan Xl] 5 mg PO 0000,0600,1200,1800 Ciprofloxacin HCl [Cipro] 250 mg PO 0700 Lactobacillus Acidophilus [Acidophilus] 2 cap PO 0700 Home Medications: Ranitidine HCl [Heartburn Relief] 150 mg PO 2200 10/14/15 [History] Acetaminophen [Extra Strength Non-Aspirin] 500 mg PO Q6H PRN 04/30/18 [History] Baclofen [Lioresal] 10 mg PO 0700,1900 04/30/18 [History] Dulaglutide [Trulicity] 1.5 mg SQ TU 04/30/18 [History] Fluorometholone [Fml Forte] 1 drop BOTH EYES DAILY 04/30/18 [History] Glimepiride [Amaryl] 4 mg PO 0700,1900 04/30/18 [History] Insulin ASPART [Novolog Flexpen] 0 unit SQ ACHS 04/30/18 [History] Insulin ASPART [Novolog Flexpen] 34 unit SQ TIDWM 04/30/18 [History] Insulin Degludec [Tresiba Flextouch U-100] 40 unit SQ HS 04/30/18 [History] Levalbuterol Tartrate [Xopenex Hfa] 2 puff IH 0000,0600,1200,1800 04/30/18 [History] Montelukast [Singulair] 10 mg PO HS 04/30/18 [History] Polyvinyl Alcohol/Povidone [Artificial Tears Drops] 1 drop OP DAILY PRN 04/30/18 [History] Albuterol Sulfate [Ventolin Hfa] 2 puff IH Q4H PRN 05/24/18 [History] Allopurinol [Zyloprim 300 MG] 300 mg PO 0700 05/24/18 [History] Bisacodyl [Gentle Laxative] 10 mg RC DAILY PRN 05/24/18 [History] Cholecalciferol (D-3) [Vitamin D] 2,000 unit PO 0700 05/24/18 [History] Cyanocobalamin (B-12) [Vitamin B12] 1,000 mcg PO 0700 05/24/18 [History] Docusate [Colace] 200 mg PO 0700,1900 05/24/18 [History] Gabapentin [Neurontin] 200 mg PO 0700,1500,2300 05/24/18 [History] Lactulose 20 gm PO DAILY PRN 05/24/18 [History] Menthol [Biofreeze] 1 appl TP TID PRN 05/24/18 [History] Polyethylene Glycol 3350 [MiraLAX] 17 gm PO DAILY PRN 05/24/18 [History] Rivaroxaban [Xarelto] 20 mg PO 1900 05/24/18 [History] Terbinafine HCl [Antifungal] 1 appl TP BID 05/24/18 [History] Tramadol HCl [Ultram] 50 mg PO QID PRN 05/24/18 [History] dilTIAZem HCl [Diltiazem 24Hr Cd] 180 mg PO 0700 05/24/18 [History] Bumetanide [Bumex] 1 mg PO Q48H 365 Days tablet 08/08/18 [Rx] Carvedilol 12.5 mg PO BID 365 Days tab 08/08/18 [Rx] Isosorbide MONOnitrate (24 HR) [Imdur] 30 mg PO DAILY 365 Days tab.er.24h 08/08/18 [Rx] Allergies/Adverse Reactions: Allergy/AdvReac Type Severity Reaction Status Date / Time indomethacin AdvReac Hives Verified 05/24/18 13:08 Date of admission: 08/06/18 12:12 Primary care physician: Rajeev Judge MD - Constitutional Vitals: Temp Pulse Resp BP Pulse Ox 97.9 F 76 18 135/65 93 05/31/19 07:33 08/08/18 07:33 08/08/18 07:33 08/08/18 07:33 08/08/18 07:33 - Patient Status Disposition: Transfer SNF Condition: Fair - Discharge Instructions Follow Up With: Rajeev Judge MD [Primary Care Provider] - 1 week - Diet and Activity Activity: wear oxygen at all times, other (BiPAP at bedtime and when necessary during daytime.) Diet: low fat, low cholesterol
[2018-08-08 09:48] LABS: BUN/Creatinine Ratio 54 (6-26); Blood Urea Nitrogen 50 mg/dL (8-23); Calcium 8.9 mg/dL (8.6-10.3); Carbon Dioxide 37 mEq/L (23-29); Chloride 92 mEq/L (98-107); Glucose 70 mg/dL (70-105); Osmolality,Calculated 290 (280-300); Sodium 134 mEq/L (136-145); eGFR For African Americans > 60 (> 60); eGFR For Non-African Americans > 60 (> 60)
--- NOTE | 2018-08-08 09:51 | Physician Discharge Referral ---
ExtendedCare Referral Info Transfer To: [facility] Provider in Charge: Deshaun Provider in Charge after Transfer: PCP (Alfie) - Diagnosis (1) Acute respiratory insufficiency Priority: Primary Status: Acute (2) Conjunctivitis Priority: Secondary Status: Acute (3) Anemia Priority: Secondary Status: Acute (4) Congestive heart failure Priority: Secondary Status: Chronic (5) Azotemia Priority: Secondary Status: Acute (6) Low vitamin D level Priority: Secondary Status: Chronic Prognosis: Good Aware of Diagnosis: Patient Aware of Prognosis: Patient - Transfer Medications Prescriptions: Bumetanide [Bumex] 1 mg PO Q48H 365 Days tablet Carvedilol 12.5 mg PO BID 365 Days tab Isosorbide MONOnitrate (24 HR) [Imdur] 30 mg PO DAILY 365 Days tab.er.24h Home Medications: Ranitidine HCl [Heartburn Relief] 150 mg PO 2200 10/14/15 [History] Acetaminophen [Extra Strength Non-Aspirin] 500 mg PO Q6H PRN 04/30/18 [History] Baclofen [Lioresal] 10 mg PO 0700,1900 04/30/18 [History] Dulaglutide [Trulicity] 1.5 mg SQ TU 04/30/18 [History] Fluorometholone [Fml Forte] 1 drop BOTH EYES DAILY 04/30/18 [History] Glimepiride [Amaryl] 4 mg PO 0700,1900 04/30/18 [History] Insulin ASPART [Novolog Flexpen] 0 unit SQ ACHS 04/30/18 [History] Insulin ASPART [Novolog Flexpen] 34 unit SQ TIDWM 04/30/18 [History] Insulin Degludec [Tresiba Flextouch U-100] 40 unit SQ HS 04/30/18 [History] Levalbuterol Tartrate [Xopenex Hfa] 2 puff IH 0000,0600,1200,1800 04/30/18 [History] Montelukast [Singulair] 10 mg PO HS 04/30/18 [History] Polyvinyl Alcohol/Povidone [Artificial Tears Drops] 1 drop OP DAILY PRN 04/30/18 [History] Albuterol Sulfate [Ventolin Hfa] 2 puff IH Q4H PRN 05/24/18 [History] Allopurinol [Zyloprim 300 MG] 300 mg PO 0700 05/24/18 [History] Bisacodyl [Gentle Laxative] 10 mg RC DAILY PRN 05/24/18 [History] Cholecalciferol (D-3) [Vitamin D] 2,000 unit PO 0700 05/24/18 [History] Cyanocobalamin (B-12) [Vitamin B12] 1,000 mcg PO 0700 05/24/18 [History] Docusate [Colace] 200 mg PO 0700,1900 05/24/18 [History] Gabapentin [Neurontin] 200 mg PO 0700,1500,2300 05/24/18 [History] Lactulose 20 gm PO DAILY PRN 05/24/18 [History] Menthol [Biofreeze] 1 appl TP TID PRN 05/24/18 [History] Polyethylene Glycol 3350 [MiraLAX] 17 gm PO DAILY PRN 05/24/18 [History] Rivaroxaban [Xarelto] 20 mg PO 1900 05/24/18 [History] Terbinafine HCl [Antifungal] 1 appl TP BID 05/24/18 [History] Tramadol HCl [Ultram] 50 mg PO QID PRN 05/24/18 [History] dilTIAZem HCl [Diltiazem 24Hr Cd] 180 mg PO 0700 05/24/18 [History] Bumetanide [Bumex] 1 mg PO Q48H 365 Days tablet 08/08/18 [Rx] Carvedilol 12.5 mg PO BID 365 Days tab 08/08/18 [Rx] Isosorbide MONOnitrate (24 HR) [Imdur] 30 mg PO DAILY 365 Days tab.er.24h 08/08/18 [Rx] Allergies/Adverse Reactions: Allergy/AdvReac Type Severity Reaction Status Date / Time indomethacin AdvReac Hives Verified 05/24/18 13:08 - Respiratory Orders Oxygen / L per min (Oxygen at 2-4 L/m by nasal cannula 01/10 to keep sat greater than 90%. Bleed 02 into BiPAP when in use.) Smoking Cessation: Smoking cessation has been advised. For more information, call the [place] Tobacco Quit Line at 0-010-MKUK-NOW. - Mobility Orders Chair - Rehabiliation Orders Rehab Potential: Poor - Diet Orders No Concentrated Sweets CERTIFICATION: I certify that the transfer of the above named patient to an Extended Care Facility is necessary for the continuing treatment of the diagnosis listed. The above information is true and accurate reflection of patient's current condition. Confidential - Redisclosure prohibited without a patient's written consent.
[2018-08-08] MEDS: Clotrimazole 1% CRM 15 GM TUBE TP SCH (11:30)
[2018-08-08] MEDS ORDERED: Insulin DETEMIR 100 UNIT/ML X5UNITS SQ SCH (21:00)
== END 2018-08-08 12:01 | DRG 189 ==
LOC: EMEROOPIK 09:53 → INPPIK 09:53
PROVIDERS: ADMIT Internal Medicine; ATTEND Internal Medicine